=== PATIENT | female | born 1970 | race Caucasian/White ===

== ENCOUNTER 2018-08-18 05:43 | Emergency (ER) | payer SELFPAY ==
[2018-08-18 06:46] LABS: Absolute Lymphocytes (CBC) 2.6 K/uL (0.7-4.9); Absolute Monocytes 0.5 K/uL (0.1-1.3); Absolute Neutrophil 7.4 K/uL (1.8-8.0); Basophils % 0.3 % (0-1.3); Eosinophils % 0.3 % (0-4.4); Hematocrit 48.3 % (36.0-45.0); Lymphocytes % 24.8 % (15.3-44.8); MPV 9.4 fL (7.6-11.3); Monocytes % 4.4 % (3.3-12.3); RBC Red Blood Cell Count 5.57 M/uL (3.86-4.86)
[2018-08-18 07:09] LABS: Protime INR 1.09
[2018-08-18 07:11] LABS: Barbiturates NEGATIVE (NEGATIVE); Benzodiazepines NEGATIVE (NEGATIVE); Cocaine NEGATIVE (NEGATIVE); METHAMPHETAM NEGATIVE (NEGATIVE); Methadone NEGATIVE (NEGATIVE); Opiates NEGATIVE (NEGATIVE); Phencyclidine NEGATIVE (NEGATIVE); THC Cannibis NEGATIVE (NEGATIVE)
[2018-08-18] MEDS ORDERED: LORazepam 2 MG/ML VIAL ONE (07:25)
[2018-08-18] MEDS ORDERED: NA CHLORIDE 0.9% 1,000 ML ONE (07:27)
--- NOTE | 2018-08-18 07:37 | EKG ---
Test Date: 2018-08-18 Test Time: 05:59:40 Kennel Supervisor: AER MEASUREMENT RESULTS: Intervals: Rate: 63 CO: 120 QRSD: 86 QT: 418 QTc: 427 [place]: P: 25 CO: 120 QRS: 14 T: 49 INTERPRETIVE STATEMENTS: Normal sinus rhythm Normal ECG No previous ECG available for comparison Electronically Signed On 08-18-18 07:36:22 ENAMEL APPLIER by Jeramy Valverde
[2018-08-18 07:42] LABS: ALT/SGPT 22 U/L (12-78); AST/SGOT 15 U/L (15-37); Albumin 3.8 g/dL (3.4-5.0); Alkaline Phosphatase 71 U/L (45-117); BUN Blood Urea Nitrogen 4 mg/dL (7-18); Bicarbonate 27 mmol/L (21-32); Bilirubin Direct 0.2 mg/dL (0-0.2); Bilirubin Total 0.7 mg/dL (0.2-1.0); Glucose Level 108 mg/dL (74-106); NT PRO-BNP 347 pg/mL (<125); Protein, Total 7.6 g/dL (6.4-8.2); Sodium Level 140 mmol/L (136-145); Troponin (Emerg Dept Use Only) < 0.02 ng/mL (0.0-0.045)
[2018-08-18 07:44] LABS: Potassium 2.8 mmol/L (3.5-5.1)
[2018-08-18 07:50] LABS: Urine Blood NEGATIVE (NEG); Urine Glucose NEGATIVE (NEG); Urine Protein NEGATIVE (NEG); Urine Specific Gravity 1.015 (1.005-1.030)
[2018-08-18] MEDS ORDERED: NS KCL 20MEQ 1,000 ML IV ONE (08:00)
[2018-08-18] MEDS ORDERED: POTASSIUM CL SA 10 MEQ TAB PO ONE (08:56)
--- NOTE | 2018-08-18 09:46 | ER ---
Nurse's Notes [facility] Name: Petra Parker Age: 47 yrs Sex: Female : 1970 Arrival Date: 08/18/2018 Time: 05:43 Bed 5 Private MD: Diagnosis: Chest pain, unspecified;Anxiety disorder, unspecified;Hypokalemia Presentation: 08/18 06:01 Presenting complaint: Patient states: she has not had a drink since Saturday and ak1 usually drinks a pint of vodka daily. 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 Transition of care: patient was not received from another setting of care. Onset of symptoms. Risk Assessment: Do you want to hurt yourself or someone else? Patient reports no desire to harm self or others. Initial Sepsis Screen: Does the patient meet any 2 criteria? No. Patient's initial sepsis screen is negative. Does the patient have a suspected source of infection? No. Patient's initial sepsis screen is negative. Care prior to arrival: pt took lisinopril, BuSpar, baclofen, melatonin, OTC stress away at 0300 to try resolve chest pain. 06:01 Acuity: ARLYN 3 ak1 06:01 Method Of Arrival: Ambulatory ak1 Triage Assessment: 05:55 General: Appears in no apparent distress. Behavior is calm, cooperative, anxious. Pain: ak1 Complains of pain in chest Pain does not radiate. EENT: No signs and/or symptoms were reported regarding the EENT system. Neuro: Level of Consciousness is awake, alert, obeys commands, Oriented to person, place, time, situation, New Business Clerk are equal bilaterally Moves all extremities. Gait is steady, Speech is normal, Facial symmetry appears normal. Cardiovascular: Reports chest pain. Respiratory: No deficits noted. GI: No signs and/or symptoms were reported involving the gastrointestinal system. : No signs and/or symptoms were reported regarding the genitourinary system. Derm: No signs and/or symptoms reported regarding the dermatologic system. Musculoskeletal: No signs and/or symptoms reported regarding the musculoskeletal system. AIRBORNE OPERATIONS: 05:54 LMP 08/02/2018 ak1 Historical: - Allergies: 06:00 No Known Allergies; ak1 - Home Meds: 06:00 gabapentin 600 mg oral tab 1 tab 3 times per day [Active]; Cymbalta 60 mg oral cpDR 2 ak1 caps once daily [Active]; amitriptyline 50 mg Oral tab 1 tab once daily [Active]; Seroquel 50 mg Oral tab 4 times daily [Active]; - PMHx: 06:00 Depression; Anxiety; Fibromyalgia; insomnia; ak1 - PSHx: 06:00 tubal ; ak1 - Immunization history:: Adult Immunizations unknown. - Social history:: Smoking status: Patient uses tobacco products, smokes one pack cigarettes per day. - Ebola Screening: : No symptoms or risks identified at this time. Screenin:05 Abuse screen: Denies threats or abuse. Denies injuries from another. Nutritional ak1 screening: No deficits noted. Tuberculosis screening: No symptoms or risk factors identified. Fall Risk None identified. Assessment: 06:05 Pain: Pain began 3 hours ago. ak1 06:05 Reassessment: Patient appears in no apparent distress at this time. No changes from ak1 previously documented assessment. see triage assessment. 07:22 Reassessment: Patient appears in no apparent distress at this time. Patient and/or family updated on plan of care and expected duration. Pain level reassessed. Patient is alert, oriented x 3, equal unlabored respirations, skin warm/dry/pink. Patient denies pain at this time. 08:00 Reassessment: Patient appears in no apparent distress at this time. No changes from hb previously documented assessment. Patient and/or family updated on plan of care and expected duration. Pain level reassessed. Patient is alert, oriented x 3, equal unlabored respirations, skin warm/dry/pink. 09:00 Reassessment: Patient appears in no apparent distress at this time. No changes from hb previously documented assessment. Patient and/or family updated on plan of care and expected duration. Pain level reassessed. Patient is alert, oriented x 3, equal unlabored respirations, skin warm/dry/pink. 09:54 Reassessment: Patient appears in no apparent distress at this time. No changes from hb previously documented assessment. Patient and/or family updated on plan of care and expected duration. Pain level reassessed. Patient is alert, oriented x 3, equal unlabored respirations, skin warm/dry/pink. 09:55 Reassessment: Discharge ordered, IV fluids infusing at this time. NAD. VSS. hb Vital Signs: 05:54 BP 150 / 82; Pulse 73; Resp 22; Temp 97.6(TE); Pulse Ox 99% on R/A; Weight 68.04 kg ak1 (R); Height 5 ft. 8 in. (172.72 cm) (R); Pain 8/10; 07:00 BP 132 / 80; Pulse 64; Resp 18; Pulse Ox 99% on R/A; sg 08:00 BP 136 / 82; Pulse 71; Resp 16; Pulse Ox 100% on R/A; Pain 0/10; hb 09:35 BP 128 / 78; Pulse 62; Resp 15; Pulse Ox 100% on R/A; hb 05:54 Body Mass Index 22.81 (68.04 kg, 172.72 cm) ak1 ED Course: 05:43 Patient arrived in ED. al2 05:54 Jesica Brandt, RN is Primary Nurse. ak1 05:54 Arm band placed on Patient placed in an exam room, on a stretcher, on pulse oximetry, ak1 Patient notified of wait time. 06:01 Alisha Zelaya FNP-C is PHCP. kb 06:01 Jaron Langley MD is Attending Physician. kb 06:03 Triage completed. ak1 06:05 Patient has correct armband on for positive identification. Placed in gown. Bed in low ak1 position. Call light in reach. Side rails up X 1. home health speech therapist on. Pulse ox on. NIBP on. 06:05 Patient maintains SpO2 saturation greater than 95% on room air. ak1 06:46 X-ray completed. Portable x-ray completed in exam room. Patient tolerated procedure jb2 well. 06:49 XRAY Chest (1 view) Sent. ak1 06:49 Missed attempt(s): 22 gauge in right antecubital area. Bleeding controlled, band aid ak1 applied, catheter tip intact. 06:50 XRAY Chest (1 view) In Process Unspecified. EDMS 07:00 Lab(s) recollected, by me, sent to lab. Inserted saline lock: 22 gauge in right bb antecubital area, using aseptic technique. Blood collected. 10:11 No provider procedures requiring assistance completed. IV discontinued, intact, hb bleeding controlled, No redness/swelling at site. Pressure dressing applied. Administered Medications: 07:23 Drug: Ativan 1 mg Route: IVP; Site: right antecubital; hb 07:23 Drug: NS 0.9% 1000 ml Route: IV; Rate: 1000 ml; Site: right antecubital; hb 07:56 Drug: NS 0.9% with KCl 20 mEq/L 1000 ml Route: IV; Rate: calculated rate; Site: left hb antecubital; 08:13 Drug: Potassium Chloride 40 mEq Route: PO; hb Outcome: 09:46 Discharge ordered by . kb 10:11 Discharged to home ambulatory. hb 10:11 Condition: stable 10:11 Discharge instructions given to patient, Instructed on discharge instructions, follow up and referral plans. medication usage, Demonstrated understanding of instructions, follow-up care, medications. 10:13 Patient left the ED. Signatures: Dispatcher [employer] EDMS Alisha Zelaya, HOME HEALTH CARE PROVIDER-C HOME HEALTH CARE PROVIDER-Crow Solo RN RN sg Buechter, Jesse jb2 Arminda Phelps RN RN bb Krenek, Amber, RN RN ak1 Baxter, Heather, RN RN hb Love, Angelica al2
--- NOTE | 2018-08-18 09:47 | EDPHYS ---
Physician Documentation [facility] Name: Petra Parker Age: 47 yrs Sex: Female : 1970 Arrival Date: 08/18/2018 Time: 05:43 Bed 5 Private MD: ED Physician Jaron Langley HPI: 08/18 07:05 This 47 yrs old Female presents to ER via Ambulatory with complaints of Chest kb Pain, WITHDRAWS. 07:05 The patient or guardian reports chest pain that is located primarily in the chest kb diffusely. Onset: 2 day(s) ago. The pain does not radiate. Associated signs and symptoms: Pertinent positives: anxiety. The chest pain is described as aching. Duration: The patient or guardian reports a single episode, that is still ongoing. Modifying factors: The symptoms are alleviated by nothing. the symptoms are aggravated by emotionally stressful situations. Severity of pain: At its worst the pain was moderate in the emergency department the pain is unchanged. The patient has not experienced similar symptoms in the past. The patient has not recently seen a physician. Pt states she moved here from [place] to be with her son because he was here alone. States she left without packing her medications. Now she is having a lot of anxiety and chest pain and believes she is withdrawing since she hasn't had her medications. States it has been 3 weeks since she has had any of her meds. Took Buspar and lisinopril to try to make her feel better, but it didn't work. Pt is tearful while recalling HPI. States "I don't want my son to see my like this." Also reports she uses alcohol every other day and hasn't had any for 2 days. 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 - Social history:: Smoking status: Patient uses tobacco products, smokes one pack cigarettes per day. - Ebola Screening: : No symptoms or risks identified at this time. ROS: 07:02 Constitutional: Negative for fever, chills, and weight loss, Eyes: Negative for injury, kb pain, redness, and discharge, ENT: Negative for injury, pain, and discharge, Neck: Negative for injury, pain, and swelling, Respiratory: Negative for shortness of breath, cough, wheezing, and pleuritic chest pain, Abdomen/GI: Negative for abdominal pain, nausea, vomiting, diarrhea, and constipation, Back: Negative for injury and pain, : Negative for injury, bleeding, discharge, and swelling, MS/Extremity: Negative for injury and deformity, Skin: Negative for injury, rash, and discoloration, Neuro: Negative for headache, weakness, numbness, tingling, and seizure. 07:02 Cardiovascular: Positive for chest pain, Negative for edema, orthopnea, palpitations, paroxysmal nocturnal dyspnea. 07:02 Psych: Positive for anxiety. Exam: 07:02 Constitutional: This is a well developed, well nourished patient who is awake, alert, kb and in no acute distress. Head/Face: Normocephalic, atraumatic. Eyes: Pupils equal round and reactive to light, extra-ocular motions intact. Lids and lashes normal. Conjunctiva and sclera are non-icteric and not injected. Cornea within normal limits. Periorbital areas with no swelling, redness, or edema. ENT: Nares patent. No nasal discharge, no septal abnormalities noted. Tympanic membranes are normal and external auditory canals are clear. Oropharynx with no redness, swelling, or masses, exudates, or evidence of obstruction, uvula midline. Mucous membranes moist. Neck: Trachea midline, no thyromegaly or masses palpated, and no cervical lymphadenopathy. Supple, full range of motion without nuchal rigidity, or vertebral point tenderness. No Meningismus. Chest/axilla: Normal chest wall appearance and motion. Nontender with no deformity. No lesions are appreciated. Cardiovascular: Regular rate and rhythm with a normal S1 and S2. No gallops, murmurs, or rubs. Normal PMI, no JVD. No pulse deficits. Respiratory: Lungs have equal breath sounds bilaterally, clear to auscultation and percussion. No rales, rhonchi or wheezes noted. No increased work of breathing, no retractions or nasal flaring. Abdomen/GI: Soft, non-tender, with normal bowel sounds. No distension or tympany. No guarding or rebound. No evidence of tenderness throughout. Skin: Warm, dry with normal turgor. Normal color with no rashes, no lesions, and no evidence of cellulitis. MS/ Extremity: Pulses equal, no cyanosis. Neurovascular intact. Full, normal range of motion. Neuro: Awake and alert, GCS 15, oriented to person, place, time, and situation. Cranial nerves II-XII grossly intact. Motor strength 5/5 in all extremities. Sensory grossly intact. Cerebellar exam normal. Normal gait. 07:02 Psych: Behavior/mood is cooperative, anxious, tearful. Affect is calm, Oriented to person, place, time, Patient has no thoughts/intents to harm self or others. Judgement / Insight is normal. Memory is normal. Delusions/hallucinations are not present. Vital Signs: 05:54 BP 150 / 82; Pulse 73; Resp 22; Temp 97.6(TE); Pulse Ox 99% on R/A; Weight 68.04 kg ak1 (R); Height 5 ft. 8 in. (172.72 cm) (R); Pain 8/10; 07:00 BP 132 / 80; Pulse 64; Resp 18; Pulse Ox 99% on R/A; sg 08:00 BP 136 / 82; Pulse 71; Resp 16; Pulse Ox 100% on R/A; Pain 0/10; hb 09:35 BP 128 / 78; Pulse 62; Resp 15; Pulse Ox 100% on R/A; hb 05:54 Body Mass Index 22.81 (68.04 kg, 172.72 cm) ak1 MDM: 06:01 Patient medically screened. kb 07:02 Data reviewed: vital signs, nurses notes. Data interpreted: Pulse oximetry: on room air kb is 99 %. Interpretation: normal. 09:36 Counseling: I had a detailed discussion with the patient and/or guardian regarding: the kb historical points, exam findings, and any diagnostic results supporting the discharge/admit diagnosis, lab results, radiology results, the need for outpatient follow up, a family practitioner, to return to the emergency department if symptoms worsen or persist or if there are any questions or concerns that arise at home. 08/18 06:16 Order name: Basic Metabolic Panel; Complete Time: 07:45 kb 08/18 06:16 Order name: CBC with Diff; Complete Time: 06:49 kb 08/18 06:16 Order name: LFT's; Complete Time: 07:45 kb 08/18 06:16 Order name: Magnesium; Complete Time: 07:45 kb 08/18 06:16 Order name: NT PRO-BNP; Complete Time: 07:45 kb 08/18 06:16 Order name: PT-INR; Complete Time: 07:25 kb 08/18 06:16 Order name: Troponin (emerg Dept Use Only); Complete Time: 07:45 kb 08/18 06:16 Order name: XRAY Chest (1 view) kb 08/18 06:16 Order name: UDS; Complete Time: 07:12 kb 08/18 06:16 Order name: ETOH Level; Complete Time: 07:34 kb 08/18 06:49 Order name: Urine Dipstick--Ancillary (enter results); Complete Time: 07:52 ag4 08/18 06:49 Order name: Urine --Ancillary (enter results); Complete Time: 07:52 ag4 08/18 08:39 Order name: Troponin (emerg Dept Use Only); Complete Time: 09:18 iw 08/18 06:16 Order name: EKG; Complete Time: 06:17 kb 08/18 06:16 Order name: Cardiac monitoring; Complete Time: 06:19 kb 08/18 06:16 Order name: EKG - Nurse/Tech; Complete Time: 06:19 kb 08/18 06:16 Order name: IV Saline Lock; Complete Time: 07:04 kb 08/18 06:16 Order name: Labs collected and sent; Complete Time: 06:48 kb 08/18 06:16 Order name: O2 Per Protocol; Complete Time: 06:19 kb 08/18 06:16 Order name: O2 Sat Monitoring; Complete Time: 06:19 kb 08/18 08:41 Order name: EKG; Complete Time: 08:41 kb 08/18 08:41 Order name: EKG - Nurse/Tech; Complete Time: 08:54 kb Administered Medications: 07:23 Drug: Ativan 1 mg Route: IVP; Site: right antecubital; hb 07:23 Drug: NS 0.9% 1000 ml Route: IV; Rate: 1000 ml; Site: right antecubital; hb 07:56 Drug: NS 0.9% with KCl 20 mEq/L 1000 ml Route: IV; Rate: calculated rate; Site: left hb antecubital; 08:13 Drug: Potassium Chloride 40 mEq Route: PO; hb Disposition: 21:00 Co-signature as Attending Physician, Jaron Langley MD. Disposition: 08/18/18 09:46 Discharged to Home. Impression: Chest pain, unspecified, Anxiety disorder, unspecified, Hypokalemia. - Condition is Stable. - Discharge Instructions: Nonspecific Chest Pain, [id number], Panic Attacks, [id number]. - Medication Reconciliation Form, Thank You Letter, Antibiotic Education, Prescription Opioid Use form. - Follow up: Emergency Department; When: As needed; Reason: Worsening of condition. Follow up: Private Physician; When: 2 - 3 days; Reason: Recheck today's complaints, Continuance of care, Re-evaluation by your physician. Signatures: Dispatcher [employer] EDMS Alisha Zelaya, SARAH-C BUSINESS RECORDS MANAGER-Jesica Deluca RN RN ak1 Heaven Garcia RN RN Jaron Langley MD MD Corrections: (The following items were deleted from the chart) 09:47 09:46 08/18/2018 09:46 Discharged to Home. Impression: Chest pain, unspecified; Anxiety kb disorder, unspecified. Condition is Stable. Forms are Medication Reconciliation Form, Thank You Letter, Antibiotic Education, Prescription Opioid Use. Follow up: Emergency Department; When: As needed; Reason: Worsening of condition. Follow up: Private Physician; When: 2 - 3 days; Reason: Recheck today's complaints, Continuance of care, Re-evaluation by your physician. kb 10:13 09:47 08/18/2018 09:46 Discharged to Home. Impression: Chest pain, unspecified; Anxiety hb disorder, unspecified; Hypokalemia. Condition is Stable. Forms are Medication Reconciliation Form, Thank You Letter, Antibiotic Education, Prescription Opioid Use. Follow up: Emergency Department; When: As needed; Reason: Worsening of condition. Follow up: Private Physician; When: 2 - 3 days; Reason: Recheck today's complaints, Continuance of care, Re-evaluation by your physician. kb
--- NOTE | 2018-08-18 10:40 | RAD REPORT ---
EXAM DESCRIPTION: RAD - Chest Single View - 08/18/2018 6:54 am CLINICAL HISTORY: CHEST PAIN Chest pain. COMPARISON: No comparisons FINDINGS: Portable technique limits examination quality. The lungs are grossly clear. The heart is normal in size. No displaced fractures. IMPRESSION: No acute intrathoracic process suspected.
--- NOTE | 2018-08-18 11:58 | EKG ---
Test Date: 2018-08-18 Test Time: 08:48:54 Liner Inserter: NATALIIA MEASUREMENT RESULTS: Intervals: Rate: 64 DC: 144 QRSD: 84 QT: 434 QTc: 447 [place]: P: 73 DC: 144 QRS: 65 T: 67 INTERPRETIVE STATEMENTS: Normal sinus rhythm Normal ECG Compared to ECG 08/18/2018 05:59:40 No significant changes Electronically Signed On 08-18-18 11:57:43 MOTOR VEHICLE LECTURER by Jeramy Valverde
[2018-08-19] MEDS ORDERED: NA CHLORIDE 0.9% 1,000 ML ONE (11:03)
[2018-08-19] MEDS ORDERED: ASPIRIN 81 MG CHEWABLE TABLET ONE (11:03)
== END 2018-08-18 10:13 | disposition home or self-care (01) ==
LOC: ER 05:43
DX: F41.9 Anxiety disorder, unspecified (principal); E87.6 Hypokalemia; F17.210 Nicotine dependence, cigarettes, uncomplicated; F32.9 Major depressive disorder, single episode, unspecified
CPT/HCPCS: 36415; 71045; 80048; 80076; 80307; 80320; 81003; 81025; 83735; 83880; 84484; 85025; 85610; 93005; 96374; 99285; J7030

== ENCOUNTER 2018-08-19 10:47 | Inpatient (IN) | payer SELFPAY ==
--- NOTE | 2018-08-19 11:44 | EDPHYS ---
Physician Documentation [facility] Name: Petra Parker Age: 47 yrs Sex: Female : 1970 Arrival Date: 08/19/2018 Time: 10:49 Bed 6 Private MD: ED Physician Forrest Blanchard HPI: 08/19 11:39 This 47 yrs old Female presents to ER via Ambulatory with complaints of Chest liborio Pain, Suicidal Ideation. 11:39 The patient or guardian reports chest pain that is located primarily in the substernal liborio area, anterior chest wall, left. Onset: 2 day(s) ago. The pain radiates to left neck. Associated signs and symptoms: Pertinent positives: shortness of breath. The chest pain is described as a heaviness, a pressure. Duration: The patient or guardian reports multiple episodes, that wax and wane. Modifying factors: The symptoms are alleviated by nothing. the symptoms are aggravated by nothing. Severity of pain: At its worst the pain was moderate in the emergency department the pain has improved mildly. The patient has experienced similar episodes in the past, several times. Historical: - Allergies: 11:07 No Known Allergies; ph - Home Meds: 11:07 gabapentin 600 mg Oral tab 1 tab 3 times per day [Active]; Cymbalta 60 mg Oral cpDR 1 ph cap twice a day [Active]; Lamictal 25 mg Oral TChD 1 tabs twice a day [Active]; Keppra 500 mg Oral tab 1 tab 2 times per day [Active]; methadone 10 mg Oral tab take 6 tablets daily for chronic pain [Active]; pantoprazole 40 mg oral TbEC 1 tab once daily [Active]; ProAir HFA 90 mcg/actuation inhalation HFAA 2 puffs every 6 hours [Active]; - PMHx: 11:07 Anxiety; Depression; Fibromyalgia; insomnia; Seizures; ph - PSHx: 11:07 tubal ; ph - Immunization history:: Adult Immunizations unknown. - Social history:: Smoking status: Patient uses tobacco products, smokes one pack cigarettes per day. Patient uses alcohol, on a daily basis. Patient/guardian denies using street drugs. - Ebola Screening: : No symptoms or risks identified at this time Patient negative for fever greater than or equal to 101.5 degrees Fahrenheit, and additional compatible Ebola Virus Disease symptoms Patient denies exposure to infectious person Patient denies travel to an Ebola-affected area in the 21 days before illness onset No symptoms or risks identified at this time. - Family history:: not pertinent. ROS: 11:39 Constitutional: Negative for fever, chills, and weight loss, Eyes: Negative for injury, liborio pain, redness, and discharge, ENT: Negative for injury, pain, and discharge, Neck: Negative for injury, pain, and swelling, Respiratory: Negative for shortness of breath, cough, wheezing, and pleuritic chest pain, Abdomen/GI: Negative for abdominal pain, nausea, vomiting, diarrhea, and constipation, Back: Negative for injury and pain, : Negative for injury, bleeding, discharge, and swelling, MS/Extremity: Negative for injury and deformity, Skin: Negative for injury, rash, and discoloration, Neuro: Negative for headache, weakness, numbness, tingling, and seizure, Psych: Negative for depression, anxiety, suicide ideation, homicidal ideation, and hallucinations, Allergy/Immunology: Negative for hives, rash, and allergies, Endocrine: Negative for neck swelling, polydipsia, polyuria, polyphagia, and marked weight changes, Hematologic/Lymphatic: Negative for swollen nodes, abnormal bleeding, and unusual bruising. 11:39 Cardiovascular: Positive for chest pain. Exam: 11:39 Constitutional: This is a well developed, well nourished patient who is awake, alert, liborio and in no acute distress. Head/Face: Normocephalic, atraumatic. Eyes: Pupils equal round and reactive to light, extra-ocular motions intact. Lids and lashes normal. Conjunctiva and sclera are non-icteric and not injected. Cornea within normal limits. Periorbital areas with no swelling, redness, or edema. ENT: Nares patent. No nasal discharge, no septal abnormalities noted. Tympanic membranes are normal and external auditory canals are clear. Oropharynx with no redness, swelling, or masses, exudates, or evidence of obstruction, uvula midline. Mucous membranes moist. Neck: Trachea midline, no thyromegaly or masses palpated, and no cervical lymphadenopathy. Supple, full range of motion without nuchal rigidity, or vertebral point tenderness. No Meningismus. Chest/axilla: Normal chest wall appearance and motion. Nontender with no deformity. No lesions are appreciated. Cardiovascular: Regular rate and rhythm with a normal S1 and S2. No gallops, murmurs, or rubs. Normal PMI, no JVD. No pulse deficits. Respiratory: Lungs have equal breath sounds bilaterally, clear to auscultation and percussion. No rales, rhonchi or wheezes noted. No increased work of breathing, no retractions or nasal flaring. Abdomen/GI: Soft, non-tender, with normal bowel sounds. No distension or tympany. No guarding or rebound. No evidence of tenderness throughout. Back: No spinal tenderness. No costovertebral tenderness. Full range of motion. Skin: Warm, dry with normal turgor. Normal color with no rashes, no lesions, and no evidence of cellulitis. MS/ Extremity: Pulses equal, no cyanosis. Neurovascular intact. Full, normal range of motion. Neuro: Awake and alert, GCS 15, oriented to person, place, time, and situation. Cranial nerves II-XII grossly intact. Motor strength 5/5 in all extremities. Sensory grossly intact. Cerebellar exam normal. Normal gait. Psych: Awake, alert, with orientation to person, place and time. Behavior, mood, and affect are within normal limits. 11:39 Musculoskeletal/extremity: DVT Exam: No signs of deep vein thrombosis. no pain, no swelling, no tenderness, negative Homans' sign noted on exam, no appreciated bluish discoloration, no erythema, no increased warmth. 11:42 Psych: Behavior/mood is pleasant, cooperative, Affect is calm, Oriented to person, liborio place, time, Patient has no thoughts/intents to harm self or others. Judgement / Insight is normal. Memory is normal. Delusions/hallucinations are not present. Vital Signs: 11:01 BP 173 / 101; Pulse 70; Resp 16; Temp 98.4; Pulse Ox 97% on R/A; Weight 68.04 kg; iw Height 5 ft. 8 in. (172.72 cm); Pain 8/10; 11:49 BP 159 / 89; Pulse 70; Resp 16; Pulse Ox 98% on R/A; iw 12:21 BP 166 / 96; Pulse 63; Resp 20; Temp 98.0(O); Pulse Ox 98% on R/A; mh5 12:57 BP 175 / 93; Pulse 58; Resp 27; Pulse Ox 97% on R/A; dh3 13:14 BP 155 / 81; Pulse 56; Resp 16; Pulse Ox 98% on R/A; iw 13:45 BP 158 / 94; Pulse 61; Resp 20; Pulse Ox 96% on R/A; dh3 11:01 Body Mass Index 22.81 (68.04 kg, 172.72 cm) MDM: 10:50 Patient medically screened. [facility] 11:39 Data reviewed: vital signs, nurses notes, lab test result(s), EKG, radiologic studies, [facility] CT scan, plain films. 08/19 10:51 Order name: Basic Metabolic Panel; Complete Time: 12:[address] [facility] 08/19 10:51 Order name: CBC with Diff; Complete Time: 12:[address] [facility] 08/19 10:51 Order name: LFT's; Complete Time: 12:[address] [facility] 08/19 10:51 Order name: Magnesium; Complete Time: 12:[address] [facility] 08/19 10:51 Order name: NT PRO-BNP; Complete Time: 12:[address] [facility] 08/19 10:51 Order name: PT-INR [facility] 08/19 10:51 Order name: Troponin (emerg Dept Use Only); Complete Time: 12:[address] [facility] 08/19 10:51 Order name: Lipase; Complete Time: 12:[address] [facility] 08/19 11:06 Order name: Acetaminophen 08/19 11:06 Order name: ETOH Level 08/19 11:06 Order name: Ptt, Activated 08/19 11:06 Order name: Salicylate 08/19 11:06 Order name: Urine Drug Screen; Complete Time: 12:46 08/19 11:06 Order name: Acetaminophen Level; Complete Time: 12:46 EDNE 08/19 11:06 Order name: Alcohol Serum/Plasma; Complete Time: 12:46 EDMS 08/19 11:06 Order name: Salicylates Level; Complete Time: 12:46 EDMS 08/19 11:41 Order name: Urine Dipstick--Ancillary (enter results) 08/19 11:41 Order name: Urine --Ancillary (enter results) 08/19 11:41 Order name: Urine Dipstick-Ancillary; Complete Time: 12:46 EDMS 08/19 11:41 Order name: Urine --Ancillary; Complete Time: 12:46 EDMS 08/19 11:55 Order name: PTT, Activated Partial Thromb EDMS 08/19 10:51 Order name: EKG; Complete Time: 10:[address] [facility] 08/19 10:51 Order name: Cardiac monitoring; Complete Time: 11: [facility] 08/19 10:51 Order name: EKG - Nurse/Tech; Complete Time: 11:[address] [facility] 08/19 10:51 Order name: IV Saline Lock; Complete Time: 11: [facility] 08/19 10:51 Order name: Labs collected and sent; Complete Time: : [facility] 08/19 10:51 Order name: O2 Per Protocol; Complete Time: 11: [facility] 08/19 10:51 Order name: O2 Sat Monitoring; Complete Time: 11: [facility] 08/19 10:51 Order name: Urine Dipstick-Ancillary (obtain specimen); Complete Time: 11:[address] [facility] 08/19 11:06 Order name: Urine Test (obtain specimen); Complete Time: 11:38 08/19 11:25 Order name: Misc. Order: RECOLLECT LABS please; Complete Time: 11:46 ss Administered Medications: 11:47 Drug: NS 0.9% 1000 ml Route: IV; Rate: 125 ml/hr; Site: left jugular; iw 11:47 Drug: Aspirin 162 mg Route: PO; iw 12:00 Drug: Thiamine 100 mg Route: IV; Rate: bolus; Site: left jugular; iw 12:00 Drug: Lopressor (metoprolol TARTRATE) 50 mg Route: PO; iw 12:03 Drug: Ativan 1 mg Route: IVP; Site: left jugular; iw 13:48 Drug: Potassium Effervescent Tablet 50 mEq Route: PO; iw 13:49 Drug: Zofran 4 mg Route: IVP; Site: left jugular; iw Disposition: 08/19/18 11:43 Hospitalization ordered by Yuniel Merritt for Observation. Preliminary diagnosis are Chest pain, unspecified, Suicidal ideations, Essential (primary) hypertension, Hypokalemia. - Bed requested for Intensive Care Unit. - Status is Observation. iw - Condition is Stable. - Problem is new. - Symptoms have improved. UTI on Admission? No Signatures: Dispatcher [employer] [facility] Forrest Blanchard MD MD cha Williams, Irene, RN RN Dana Su RN RN Ramya Omalley RN RN Maxine Lenz Corrections: (The following items were deleted from the chart) 11:04 10:52 Chest Single View+[id number].[id number] ordered. EDNE EDMS 11:55 11:06 PTT, Activated Partial Thromb ordered. EDNE EDMS 12:47 11:43 Hospitalization Ordered by Yuniel Merritt MD for Observation. Preliminary diagnosis liborio is Chest pain, unspecified; Suicidal ideations; Essential (primary) hypertension. Bed requested for Telemetry/MedSurg (observation). Status is Observation. Condition is Stable. Problem is new. Symptoms have improved. UTI on Admission? No. liborio 13:20 12:47 08/19/2018 11:43 Hospitalization Ordered by Yuniel Merritt MD for Observation. eb Preliminary diagnosis is Chest pain, unspecified; Suicidal ideations; Essential (primary) hypertension; Hypokalemia. Bed requested for Telemetry/MedSurg (observation). Status is Observation. Condition is Stable. Problem is new. Symptoms have improved. UTI on Admission? No. liborio 14:40 13:20 08/19/2018 11:43 Hospitalization Ordered by Yuniel Merritt MD for Observation. iw Preliminary diagnosis is Chest pain, unspecified; Suicidal ideations; Essential (primary) hypertension; Hypokalemia. Bed requested for Intensive Care Unit. Status is Observation. Condition is Stable. Problem is new. Symptoms have improved. UTI on Admission? No. eb
--- NOTE | 2018-08-19 11:44 | ER ---
Nurse's Notes [facility] Name: Petra Parker Age: 47 yrs Sex: Female : 1970 Arrival Date: 08/19/2018 Time: 10:49 Bed 6 Private MD: Diagnosis: Chest pain, unspecified;Suicidal ideations;Essential (primary) hypertension;Hypokalemia Presentation: 08/19 10:57 Presenting complaint: Patient states: L sided chest pain x 2-3 weeks that radiates to L ph jaw, also reports dizziness and palpitations, states, " I have been out of my medicines for about 3 weeks and I have been thinking about killing myself." Pt does report organized plan and states that she would hang herself. Pt also states that she is a daily drinker, reports drinking a 5th of vodka daily since out of medications, last drink this morning. Transition of care: patient was not received from another setting of care. Onset of symptoms was August 19, 2018. Risk Assessment: Do you want to hurt yourself or someone else? Patient reports desire/thoughts of hurting themselves or someone else. Provider notified. Initial Sepsis Screen: Does the patient meet any 2 criteria? No. Patient's initial sepsis screen is negative. Does the patient have a suspected source of infection? No. Patient's initial sepsis screen is negative. Care prior to arrival: None. 10:57 Method Of Arrival: Ambulatory ph 10:57 Acuity: ARLYN 2 ph Historical: - Allergies: 11:07 No Known Allergies; ph - Home Meds: 11:07 gabapentin 600 mg Oral tab 1 tab 3 times per day [Active]; Cymbalta 60 mg Oral cpDR 1 ph cap twice a day [Active]; Lamictal 25 mg Oral TChD 1 tabs twice a day [Active]; Keppra 500 mg Oral tab 1 tab 2 times per day [Active]; methadone 10 mg Oral tab take 6 tablets daily for chronic pain [Active]; pantoprazole 40 mg oral TbEC 1 tab once daily [Active]; ProAir HFA 90 mcg/actuation inhalation HFAA 2 puffs every 6 hours [Active]; - PMHx: 11:07 Anxiety; Depression; Fibromyalgia; insomnia; Seizures; ph - PSHx: 11:07 tubal ; ph - Immunization history:: Adult Immunizations unknown. - Social history:: Smoking status: Patient uses tobacco products, smokes one pack cigarettes per day. Patient uses alcohol, on a daily basis. Patient/guardian denies using street drugs. - Ebola Screening: : No symptoms or risks identified at this time Patient negative for fever greater than or equal to 101.5 degrees Fahrenheit, and additional compatible Ebola Virus Disease symptoms Patient denies exposure to infectious person Patient denies travel to an Ebola-affected area in the 21 days before illness onset No symptoms or risks identified at this time. - Family history:: not pertinent. Screenin:52 Abuse screen: Denies threats or abuse. Nutritional screening: No deficits noted. iw Tuberculosis screening: No symptoms or risk factors identified. Fall Risk IV access (20 points). Assessment: 11:51 Reassessment: Patient appears in no apparent distress at this time. Patient and/or iw family updated on plan of care and expected duration. Pain level reassessed. Patient is alert, oriented x 3, equal unlabored respirations, skin warm/dry/pink. pt requesting medication for anxiety, hasn't slept in two days. Psych: 11:15 Subjective: Patient's mood is sad, Delusions are denied, Hallucinations are denied iw Having thoughts of suicide. Plan for suicide is to hang herself. Objective: Patient is cooperative, Speech is normal, Affect is flat. Interventions: Removed personal items and placed in bag. Patient placed in hospital gown. Searched person for dangerous items. Urine collected and sent for urine drug test. Suicide Risk Assessment: Sad Person Scale: Sex of patient: Female: Score 0 points. Age of patient: Score 0 point if patient falls outside of specified age parameters. Depression: Score 1 point if signs of depression are present. Previous Attempt: Substance Abuse: Score 1 point if patient abuses alcohol or drugs. Rational Thinking: Score 1 point if patient is lacking rational thinking. Social Support: Score 1 point if social support is lacking and/or unavailable. Organized Plan: Score 1 point if patient had a plan in place. Relationship: Score 1 point if patient is , , , or for a single male Chronic Sickness: Score 0 point if patient does not have a chronic illness, debilitating, or severe disorder. Safety Checks: Personal items have been removed. Door is open. Patient uses one fifth of liquor, daily. Last use was this morning . Commitment: Patient will be a voluntary commitment. Vital Signs: 11:01 BP 173 / 101; Pulse 70; Resp 16; Temp 98.4; Pulse Ox 97% on R/A; Weight 68.04 kg; iw Height 5 ft. 8 in. (172.72 cm); Pain 8/10; 11:49 BP 159 / 89; Pulse 70; Resp 16; Pulse Ox 98% on R/A; iw 12:21 BP 166 / 96; Pulse 63; Resp 20; Temp 98.0(O); Pulse Ox 98% on R/A; mh5 12:57 BP 175 / 93; Pulse 58; Resp 27; Pulse Ox 97% on R/A; dh3 13:14 BP 155 / 81; Pulse 56; Resp 16; Pulse Ox 98% on R/A; iw 13:45 BP 158 / 94; Pulse 61; Resp 20; Pulse Ox 96% on R/A; dh3 11:01 Body Mass Index 22.81 (68.04 kg, 172.72 cm) iw ED Course: 10:49 Patient arrived in ED. rg4 10:50 Forrest Blanchard MD is Attending Physician. liborio 10:51 Sallie Pascal, RN is Primary Nurse. iw 11:01 Triage completed. ph 11:05 Initial lab(s) drawn, by me, sent to lab. Missed attempt(s): 22 gauge in left sv antecubital area. Bleeding controlled, band aid applied, catheter tip intact. 11:07 EKG done, by medical technologist prn. reviewed by Forrest Blanchard MD. 3 11:07 Arm band placed on Patient placed in an exam room, on a stretcher, in view of staff ph members. 11:07 Safety checks: Items removed: yes. Door open/sign placed on door: yes. Family/friend dh3 present: no. Sitter present: Yes. 11:09 Patient has correct armband on for positive identification. Placed in gown. Bed in low sv position. electronic device monitor on. Pulse ox on. NIBP on. Head of bed elevated. 11:15 Safety checks: Items removed: yes. Door open/sign placed on door: yes. Family/friend dh3 present: no. Sitter present: Yes. 11:23 Urine collected: hat, deonte color. dh3 11:30 Missed attempt(s): 22 gauge in right forearm. Bleeding controlled, band aid applied, iw catheter tip intact. 11:30 Safety checks: Items removed: yes. Door open/sign placed on door: yes. Family/friend dh3 present: no. Sitter present: Yes. 11:40 Lab(s) recollected, by me, sent to lab. [facility] 11:40 Inserted saline lock: 18 gauge in left EJ, using aseptic technique. by Dr. Blanchard. [facility] 11:42 Yuniel Merritt MD is Hospitalizing Provider. [facility] 11:45 Safety checks: Items removed: yes. Door open/sign placed on door: yes. Family/friend dh3 present: no. Sitter present: Yes. 12:00 Safety checks: Items removed: yes. Door open/sign placed on door: yes. Family/friend mh5 present: no. Sitter present: Yes. 12:15 Safety checks: Items removed: yes. Door open/sign placed on door: yes. Family/friend mh5 present: no. Other: DR SILVA IN WITH PATIENT . Sitter present: Yes. 12:30 Safety checks: Items removed: yes. Door open/sign placed on door: yes. Family/friend mh5 present: no. Sitter present: Yes. 12:45 Safety checks: Items removed: yes. Door open/sign placed on door: yes. Family/friend dh3 present: no. Sitter present: Yes. 13:00 Safety checks: Items removed: yes. Door open/sign placed on door: yes. Family/friend dh3 present: no. Sitter present: Yes. 13:15 Safety checks: Items removed: yes. Door open/sign placed on door: yes. Family/friend dh3 present: no. Sitter present: Yes. 13:30 Safety checks: Items removed: yes. Door open/sign placed on door: yes. Family/friend dh3 present: no. Sitter present: Yes. 13:45 Safety checks: Items removed: yes. Door open/sign placed on door: yes. Family/friend dh3 present: no. Sitter present: Yes. 14:00 Safety checks: Items removed: yes. Door open/sign placed on door: yes. Family/friend dh3 present: no. Sitter present: Yes. Administered Medications: 11:47 Drug: NS 0.9% 1000 ml Route: IV; Rate: 125 ml/hr; Site: left jugular; iw 11:47 Drug: Aspirin 162 mg Route: PO; iw 12:00 Drug: Thiamine 100 mg Route: IV; Rate: bolus; Site: left jugular; iw 12:00 Drug: Lopressor (metoprolol TARTRATE) 50 mg Route: PO; iw 12:03 Drug: Ativan 1 mg Route: IVP; Site: left jugular; iw 13:48 Drug: Potassium Effervescent Tablet 50 mEq Route: PO; iw 13:49 Drug: Zofran 4 mg Route: IVP; Site: left jugular; iw Outcome: 11:43 Decision to Hospitalize by Provider. [facility] 14:40 Patient left the ED. iw Signatures: Melanie Medina RN RN Forrest Blanchard MD MD cha Williams, Irene, RN RN Ramya Omalley RN RN Remy, Maryann 4 Juanita Waterman 5 Mathew, Maria Isabel 3 Linn Tate 3 Corrections: (The following items were deleted from the chart) 11:14 11:01 Temp 98.4F; 68.04 kg; Height 5 ft. 8 in.; BMI: 22.8; Pain 8/10; ph iw
[2018-08-19 11:47] LABS: Barbiturates NEGATIVE (NEGATIVE); Benzodiazepines NEGATIVE (NEGATIVE); Cocaine NEGATIVE (NEGATIVE); METHAMPHETAM NEGATIVE (NEGATIVE); Methadone NEGATIVE (NEGATIVE); Opiates NEGATIVE (NEGATIVE); Phencyclidine NEGATIVE (NEGATIVE); THC Cannibis NEGATIVE (NEGATIVE)
[2018-08-19 12:02] LABS: Urine Blood NEGATIVE (NEG); Urine Glucose NEGATIVE (NEG); Urine Protein 1+ (NEG); Urine Specific Gravity 1.025 (1.005-1.030)
[2018-08-19] MEDS ORDERED: METOPROLOL TAR 50 MG TAB ONE (12:05)
[2018-08-19] MEDS ORDERED: THIAMINE 200 MG/2 ML INJ ONE (12:05)
[2018-08-19] MEDS ORDERED: LORazepam 2 MG/ML VIAL ONE (12:05)
[2018-08-19 12:11] LABS: Absolute Lymphocytes (CBC) 3.6 K/uL (0.7-4.9); Absolute Monocytes 0.8 K/uL (0.1-1.3); Absolute Neutrophil 6.9 K/uL (1.8-8.0); Basophils % 0.3 % (0-1.3); Eosinophils % 0.1 % (0-4.4); Hematocrit 43.5 % (36.0-45.0); Lymphocytes % 31.5 % (15.3-44.8); MPV 9.6 fL (7.6-11.3); Monocytes % 7.1 % (3.3-12.3); RBC Red Blood Cell Count 4.98 M/uL (3.86-4.86)
[2018-08-19 12:20] LABS: Protime INR 1.09
[2018-08-19 12:25] LABS: ALT/SGPT 22 U/L (12-78); AST/SGOT 19 U/L (15-37); Albumin 3.8 g/dL (3.4-5.0); Alkaline Phosphatase 69 U/L (45-117); BUN Blood Urea Nitrogen 6 mg/dL (7-18); Bicarbonate 25 mmol/L (21-32); Bilirubin Direct 0.2 mg/dL (0-0.2); Bilirubin Total 0.5 mg/dL (0.2-1.0); Glucose Level 98 mg/dL (74-106); Lipase 174 U/L (73-393); NT PRO-BNP 198 pg/mL (<125); Protein, Total 7.6 g/dL (6.4-8.2); Sodium Level 138 mmol/L (136-145); Troponin (Emerg Dept Use Only) < 0.02 ng/mL (0.0-0.045)
--- NOTE | 2018-08-19 12:43 | EKG ---
Test Date: 2018-08-19 Test Time: 11:02:47 Low Pressure Kettle Operator: NATALIIA MEASUREMENT RESULTS: Intervals: Rate: 68 SD: 122 QRSD: 84 QT: 408 QTc: 433 [place]: P: 33 SD: 122 QRS: 67 T: 62 INTERPRETIVE STATEMENTS: Normal sinus rhythm Normal ECG Compared to ECG 08/18/2018 08:48:54 No significant changes Electronically Signed On 08-19-18 12:38:05 FRUIT OR NUT PICKER by Jeramy Valverde
[2018-08-19] MEDS ORDERED: ONDANSETRON 4 MG/2 ML VIAL ONE (13:51)
[2018-08-19] MEDS ORDERED: POTASSIUM 25 MEQ EFFERV TAB ONE (13:51)
[2018-08-19] MEDS ORDERED: ACETAMINOPHEN 500 MG TAB PO PRN (13:54)
[2018-08-19] MEDS ORDERED: LORazepam 2 MG/ML VIAL IV ONE (15:17)
[2018-08-19] MEDS: ONDANSETRON 4 MG/2 ML VIAL IV PRN (15:29)
[2018-08-19] MEDS: NICOTINE 21 MG/PAT TD SCH (15:29)
[2018-08-19] MEDS: NA CHLORIDE 0.9% 1,000 ML IV SCH (15:30)
[2018-08-19] MEDS: ENOXAPARIN 40 MG/0.4 ML SQ SCH (15:31)
--- NOTE | 2018-08-19 18:20 | P.HP ---
Certification for Inpatient Patient admitted to: Inpatient With expected LOS: >2 Midnights Practitioner: I am a practitioner with admitting privileges, knowledge of patient current condition, hospital course, and medical plan of care. Services: Services provided to patient in accordance with Admission requirements found in Title 42 Section 412.3 of the Code of Federal Regulations Patient History Date of Service: 08/19/18 Primary Care Provider: Does not have one, recently moved from [place] Reason for admission: Chest pain History of Present Illness: This is a 47-year-old female with history of heroin addiction/usage, alcohol abuse, depression, questionable seizure admitted for chest pain. The patient was in the ER at the day prior to admission, sent home with ER. Now returns with worsening chest pain. Per patient, just inserted just 3 weeks ago in the sternal/lower left side area of the chest, impinging/shooting type of pain along with some heaviness. States the pain radiates down her left arm, up to her jaw and neck of the left side. It has been progressively worsening for the past 2-3 weeks. She states that is associated with palpitations, vomiting, chills and clamminess. Denies any fevers, abdominal symptoms, diarrhea, constipation or symptoms. Per patient, she does have a history of depression and she has not been taking any of her medications past meds because she could not afford them. She states that she is becoming more more depressed, has suicidal thoughts. Last time she had any suicidal ideations was the morning of admission. She stated that she would hang herself, because she was tired of living the way she has been, trying to cough up alcohol, unable to afford medications etc. Of note, patient also has a history of addiction to heroin. Patient states that she has not used any heroin since 1 month. She was supposed to be going to a methadone clinic, though has not been doing that because she cannot afford it?. She has recently moved from [place] here 1 week ago and therefore has no support system here or any primary care physician. In the ER, patient's blood pressure was 166/96, heart rate of 63, EKG with nonspecific changes, BNP slightly elevated and labs fairly unremarkable. At the time of my exam, she was not in any acute distress, though did seem a little anxious. She was alert oriented x3. Allergies No Known Allergies Allergy (Unverified 08/19/18 13:54) Home Medications: Albuterol Sulfate [Proair Hfa] 2 puff IH Q6HP PRN 08/19/18 Duloxetine HCl 60 mg PO BID 08/19/18 Gabapentin 600 mg PO TID 08/19/18 Methadone HCl [Methadone HCl*] 60 mg PO DAILY 08/19/18 Multivitamin [Multiple Vitamins] 1 tab PO DAILY 08/19/18 Naproxen [Naprosyn] 1 tab PO BID 08/19/18 Mgjcxgoj-Thrsmybelmiudch-Oxpuhabjbcilvd 5 ml PO Q4HR 08/19/18 Pantoprazole Sodium 40 mg PO DAILY 08/19/18 lamoTRIgine [Lamictal*] 25 mg PO BID 08/19/18 levETIRAcetam [Keppra*] 500 mg PO BID 08/19/18 - Past Medical/Surgical History Has patient received pneumonia vaccine in the past: No Diabetic: No -: Anxiety -: Depression -: Fibromyalgia -: HTN -: Tubal Pregancy -: Heroin Addiction -: Ectopic Removal - Family History Father History Unknown: Yes -: Diabetes, Other (see notes) Notes: Parkinson's, Mother History Unknown: Yes -: Heart disease, Diabetes, Stroke Notes: Still living Sister History Unknown: Yes -: Cancer Notes: Both sisters have had cancer - Social History Smoking Status: Current every day smoker Alcohol use: Yes CD- Drugs: Yes Caffeine use: No Place of Residence: Home Review of Systems 10-point ROS is otherwise unremarkable Physical Examination - Vital Signs Temperature: 98.2 F Blood Pressure: 106/57 Pulse: 76 Respirations: 26 Pulse Ox (%): 96 - Physical Exam General: Alert, In no apparent distress, Oriented x3, Other (Little anxious) HEENT: Atraumatic, PERRLA, Mucous membr. moist/pink, EOMI, Sclerae nonicteric Neck: Supple, 2+ carotid pulse no bruit, No LAD, Without JVD or thyroid abnormality Respiratory: Clear to auscultation bilaterally, Normal air movement Cardiovascular: Regular rate/rhythm, Normal S1 S2 Gastrointestinal: Normal bowel sounds, No tenderness Musculoskeletal: No tenderness Integumentary: No rashes Neurological: Normal gait, Normal speech, Normal strength at 5/5 x4 extr, Normal tone, Normal affect - Studies Laboratory Data (last 24 hrs) 08/19/18 11:40: APTT Cancelled 08/19/18 11:40: PT 12.9 H, INR 1.09, APTT 29.9 08/19/18 11:40: WBC 11.3 H, Hgb 15.0, Hct 43.5, Plt Count 287 08/19/18 11:40: Sodium 138, Potassium 3.0 L, BUN 6 L, Creatinine 0.58, Glucose 98, Magnesium 2.0, Total Bilirubin 0.5, AST 19, ALT 22, Alkaline Phosphatase 69 , Lipase 174 Assessment and Plan - Problems (Diagnosis) (1) Chest pain, rule out acute myocardial infarction Current Visit: Yes Status: Acute (2) Depression with suicidal ideation Current Visit: Yes Status: Acute (3) History of depression Current Visit: Yes Status: Acute (4) Heroin addiction Current Visit: Yes Status: Acute (5) Alcohol abuse Current Visit: Yes Status: Acute (6) Current tobacco use Current Visit: Yes Status: Chronic (7) Hypertension Current Visit: Yes Status: Chronic Qualifiers: Hypertension type: essential hypertension Qualified Code(s): I10 - Essential (primary) hypertension - Plan This is a 47-year-old female with: Chest pain, rule out myocardial infarction. Risk factor: Family history of diabetes, hypertension, heroin use, smoking, alcohol abuse Tele monitoring. Chest guidelines: Low-dose metoprolol, lisinopril, aspirin, Plavix and nitro p.r.n.. Will try to avoid morphine at this time. Cardiology consulted Active suicidal ideation Admit patient to ICU, with 1 on 1 sitter. Suicidal precautions Restart home medication for depression. Once medically stable, will have psych eval for possible further inpatient care as patient has no support system here since she just moved about a week ago from [place]. Social work consult placed History of depression Patient has been off depression medications for the past 2 months Restart home medication at this time. Will get psych eval for possible further inpatient care versus outpatient psych care. Essential hypertension Patient not on any prior blood pressure medications. Will start patient on low-dose metoprolol and lisinopril. Will monitor blood pressure, adjust medications as needed. Heroin addiction. Patient with a history of heroin addiction, states that she was suppose could methadone clinic but has not gone. States she has not done any heroin for 1 month, urine drug screen negative. Will continue to monitor. May need resources prior to discharge. Alcohol abuse Counseled on alcohol cessation. Monitor for withdrawal symptoms. Ativan p.r.n. 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 Nicotine patch ordered per patient's wishes. ? Seizure history Patient on home medications Lamictal and Keppra. Patient unsure of any seizure history? Will hold medications at this time and no further information is obtained. DVT prophylaxis: Lovenox GI prophylaxis: Not needed Diet: Heart healthy Disposition: Admit to ICU with 1 on 1 monitoring. Cardiology evaluation pending, psych evaluation pending. - Advance Directives Does patient have a Living Will: No Does patient have a Durable POA for Healthcare: No
[2018-08-19] MEDS ORDERED: NITROGLYCERIN 0.4 MG/TAB SL PRN (18:32)
[2018-08-19] MEDS ORDERED: lamoTRIgine 25 MG TAB PO SCH (21:00)
[2018-08-19] MEDS: levETIRAcetam 500 MG TAB PO SCH (21:29)
[2018-08-19] MEDS: DULOXETINE 30 MG CAP PO SCH (21:29)
[2018-08-19] MEDS: LORazepam 2 MG/ML VIAL IV PRN (21:30)
[2018-08-20] MEDS: NA CHLORIDE 0.9% 1,000 ML IV SCH ×3 (00:30→17:35)
[2018-08-20] MEDS: chlordiazePOXIDE HCl 25 MG CAP PO SCH ×5 (01:53→23:49)
[2018-08-20] MEDS: LORazepam 2 MG/ML VIAL IV PRN ×5 (04:29→23:49)
[2018-08-20 05:08] LABS: Absolute Lymphocytes (CBC) 3.4 K/uL (0.7-4.9); Absolute Monocytes 0.7 K/uL (0.1-1.3); Basophils % 0.4 % (0-1.3); Eosinophils % 0.8 % (0-4.4); Hematocrit 41.6 % (36.0-45.0); Lymphocytes % 33.3 % (15.3-44.8); MPV 9.8 fL (7.6-11.3); Monocytes % 6.8 % (3.3-12.3)
[2018-08-20 05:22] LABS: ALT/SGPT 18 U/L (12-78); AST/SGOT 14 U/L (15-37); Albumin 3.1 g/dL (3.4-5.0); Alkaline Phosphatase 59 U/L (45-117); BUN Blood Urea Nitrogen 7 mg/dL (7-18); Bicarbonate 26 mmol/L (21-32); Bilirubin Total 0.7 mg/dL (0.2-1.0); Glucose Level 89 mg/dL (74-106); Potassium 3.1 mmol/L (3.5-5.1); Protein, Total 6.1 g/dL (6.4-8.2); Sodium Level 143 mmol/L (136-145)
[2018-08-20] MEDS ORDERED: METOPROLOL TAR 25 MG TAB PO SCH (06:00)
[2018-08-20] MEDS ORDERED: POTASSIUM CL SA 10 MEQ TAB PO ONE ×2 (06:20→17:00)
[2018-08-20] MEDS: ONDANSETRON 4 MG/2 ML VIAL IV PRN (07:31)
[2018-08-20] MEDS: levETIRAcetam 500 MG TAB PO SCH ×2 (08:52→20:04)
[2018-08-20] MEDS: DULOXETINE 30 MG CAP PO SCH ×2 (08:52→20:04)
[2018-08-20] MEDS: ASPIRIN EC 81 MG TAB PO SCH (08:52)
[2018-08-20] MEDS: PANTOPRAZOLE 40MG TABLET PO SCH (08:52)
[2018-08-20] MEDS: NICOTINE 21 MG/PAT TD SCH (09:00)
[2018-08-20] MEDS ORDERED: INFLUENZA VACCINE (for 3y+) 0.5 ML DOSE IMVAC ONE (09:00)
[2018-08-20] MEDS ORDERED: LISINOPRIL 5 MG TAB PO SCH (09:00)
[2018-08-20] MEDS ORDERED: REGADENOSON 0.4 MG/5 ML SYR IV ONE (09:33)
[2018-08-20] MEDS: LISINOPRIL 10 MG TAB PO SCH (09:47)
[2018-08-20] MEDS: lamoTRIgine 100 MG TAB PO SCH ×2 (10:40→20:04)
--- NOTE | 2018-08-20 11:03 | ECHO ---
HEIGHT: 5 ft 8 in WEIGHT: 151 lb 8 oz DATE OF STUDY: 08/20/[address]: Jeramy Valverde MD 2-DIMENSIONAL: YES M.MODE: YES DOPPLER: YES COLOR FLOW: YES TDS: NO PORTABLE: YES DEFINITY: NO BUBBLE STUDY: NO DIAGNOSIS: CHEST PAIN CARDIAC HISTORY: CATHERIZATION: NO SURGERY: NO PROSTHETIC VALVE: NO PACEMAKER: NO MEASUREMENTS (cm) DIASTOLIC (NORMALS) SYSTOLIC (NORMALS) IVSd 1.0 (0.6-1.2) LA Diam 3.2 (1.9-4.0) LVEF 66% LVIDd 4.4 (3.5-5.7) LVIDs 2.8 (2.0-3.5) %FS 36% LVPWd 1.1 (0.6-1.2) Ao Diam 2.6 (2.0-3.7) 2 DIMENSIONAL ASSESSMENT: RIGHT ATRIUM: NORMAL LEFT ATRIUM: NORMAL RIGHT VENTRICLE: NORMAL LEFT VENTRICLE: NORMAL TRICUSPID VALVE: NORMAL MITRAL VALVE: NORMAL PULMONIC VALVE: NORMAL AORTIC VALVE: NORMAL PERICARDIAL EFFUSION: NONE AORTIC ROOT: NORMAL LEFT VENTRICULAR WALL MOTION: NORMAL. DOPPLER/COLOR FLOW: MILD MITRAL AND TRICUSPID REGURGITATION. NORMAL RIGHT VENTRICULAR SYSTOLIC PRESSURE. COMMENTS: NORMAL 2D ECHO. MILD MITRAL AND TRICUSPID REGURGITATION. TECHNOLOGIST: KAMRAN MARINELLI
--- NOTE | 2018-08-20 13:08 | RAD REPORT ---
EXAM DESCRIPTION: NM - Rest Stress Cardiac Imaging - 08/20/2018 12:58 pm CLINICAL HISTORY: CP Chest pain. COMPARISON: No comparisons TECHNIQUE: The patient was administered approximately 10mCi of Tc 99m Sestamibi prior to resting SPE CT imaging of the heart. The patient was then administered approximately 30 mCi of Tc 99m Sestamibi f ollowing exercise or pharmacologic stress. Multiplanar SPECT images were reviewed. FINDINGS: No stress induced ischemic defect is seen to suggest stress induced ischemia. No fixed def ect is seen to suggest hibernating myocardium or scarred myocardium. The end diastolic volume is 84 ml, the end systolic volume is 31 ml, and the ejection fraction is 63 %. IMPRESSION: No stress induced ischemia.
--- NOTE | 2018-08-20 13:22 | CON ---
CARDIOLOGY CONSULT Chief Complaint: Chest pain. History Of Present Illness: Mrs. Parker has been having chest pain for a month. It is fairly const ant, located on the left side, not related to exertion or meals or deep breath or body position. She is a patient who has a substance abuse problem and was referred to a Methadone Clinic, but they refu sed to take her because her QT interval was long. She has no history of myocardial infarction, strok e, or diabetes. She has substance abuse problems and a seizure disorder. Outpatient Medications: Albuterol, nystatin, diphenhydramine, duloxetine, naproxen, gabapentin, Lami ctal, Keppra, methadone, multivitamins, and Protonix. Allergies: SHE HAS NO ALLERGIES. Social History: She uses tobacco more than a pack a day. Alcohol use, moderate. No recreational dr ugs in the last month. Physical Examination: Vital Signs: 5 feet 8 inches, 151 pounds. HEENT: Normal. Lungs: Clear. Heart Exam: Within normal limits. No friction rub. Abdomen: Soft. Extremities: Normal distal pulses. Diagnostic Data: Her electrocardiogram is within normal limits. Her troponin levels are all normal. Impression: The patient has no contraindication to being on methadone. Her QT is not prolonged now; it probably can be temporarily prolonged when she is on Lamictal and Keppra, but again it is not a c ontraindication to her using methadone. Her chest pain should be investigated, although she is only 47, she has risk factors. So, we will do a nuclear stress test and echo, and based on what we learn, we may want to recommend a cardiac cath. GARO Voice ID: [id number] Report ID: [id number]
--- NOTE | 2018-08-20 15:32 | TREADPHA ---
DX: CHEST PAIN Date of Study: 08/20/2018 Ht: 5 8 Wt: 151 lb 8 oz Consulting Physician: DR. MARQUIS MEDICATIONS: TYLENOL, ASPIRIN, LIBRIUM, LOVENOX, LAMICTAL, LOPRESSOR, NITROSTAT. HISTORY: 47 YEAR OLD FEMALE WITH COMPLAINTS OF CHEST PAIN. MEDICAL HISTORY OF ANXIETY, DEPRESSION, FIBROMYALGIA, INSOMNIA, SEIZURES. PHYSICIAL EXAMINATION: RESTING B.P.: 190/104 RESTING H.R.: 50 RESTING EKG: NORMAL PROTOCOL: LEXISCAN EXERCISE TIME: 3:30 B.P. AT PEAK STRESS: 141/95 IMPRESSION: LEXISCAN INJECTED, CARDIOLITE INJECTED, PER PROTOCOL. SEE NUCLEAR MEDICINE REPORT. NO SUPRAVENTRICULAR TACHYCARDIA, NO VENTRICULAR TACHYCARDIA. 4/10 CHEST PAIN THROUGHOUT PROCEDURE. NO PREMATURE VENTRICULAR COMPLEXES. NON DIAGNOSTIC ELECTROCARDIOGRAM LEXISCAN STUDY.
--- NOTE | 2018-08-20 17:18 | P.PN ---
Subjective Date of Service: 08/20/18 Primary Care Provider: Does not have one, recently moved from [place] Chief Complaint: Chest pain Subjective: No C/O voiced, Improving Patient seen and examined at bedside. No family at bedside. Chart reviewed and case discussed with nursing staff. Patient having diarrhea, nonbloody. No other concerns or complaints this morning. Still reports feeling anxious Review of Systems 10-point ROS is otherwise unremarkable Physical Examination - Vital Signs Temperature: 98 F Blood Pressure: 161/86 Pulse: 56 Respirations: 17 Pulse Ox (%): 94 - Physical Exam General: Alert, In no apparent distress, Oriented x3 HEENT: Atraumatic, PERRLA, EOMI Neck: Supple, JVD not distended Respiratory: Clear to auscultation bilaterally, Normal air movement Cardiovascular: Regular rate/rhythm, Normal S1 S2 Gastrointestinal: Normal bowel sounds, No tenderness Musculoskeletal: No tenderness Integumentary: No rashes Neurological: Normal speech, Normal tone, Normal affect Lymphatics: No axilla or inguinal lymphadenopathy Assessment And Plan - Current Problems (Diagnosis) (1) Chest pain, rule out acute myocardial infarction Current Visit: Yes Status: Acute (2) Depression with suicidal ideation Current Visit: Yes Status: Acute (3) History of depression Current Visit: Yes Status: Acute (4) Heroin addiction Current Visit: Yes Status: Acute (5) Alcohol abuse Current Visit: Yes Status: Acute (6) Current tobacco use Current Visit: Yes Status: Chronic (7) Hypertension Current Visit: Yes Status: Chronic Qualifiers: Hypertension type: essential hypertension Qualified Code(s): I10 - Essential (primary) hypertension - Plan This is a 47-year-old female with: Chest pain, rule out myocardial infarction. Risk factor: Family history of diabetes, hypertension, heroin use, smoking, alcohol abuse Tele monitoring. Chest guidelines: Low-dose metoprolol, lisinopril, aspirin, Plavix and nitro p.r.n.. Will try to avoid morphine at this time. Cardiology consulted. Recommendations appreciated. She is cleared from cardiology point of view for further psychiatric workup/ evaluation Active suicidal ideation Admit patient to ICU, with 1 on 1 sitter. Suicidal precautions Continued home medication for depression. Once medically stable, will have psych eval for possible further inpatient care as patient has no support system here since she just moved about a week ago from [place]. Social work consult placed History of depression Patient has been off depression medications for the past 2 months Restart home medication at this time. Will get psych eval for possible further inpatient care versus outpatient psych care. Essential hypertension Patient not on any prior blood pressure medications. Will start patient on low-dose metoprolol and lisinopril. Will monitor blood pressure, adjust medications as needed. Heroin addiction. Patient with a history of heroin addiction, states that she was suppose could methadone clinic but has not gone. States she has not done any heroin for 1 month, urine drug screen negative. Will continue to monitor. May need resources prior to discharge. Alcohol abuse Counseled on alcohol cessation. Monitor for withdrawal symptoms. Ativan p.r.n. 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 Nicotine patch ordered per patient's wishes. ? Seizure history Patient on home medications Lamictal and Keppra. Patient unsure of any seizure history? Will hold medications at this time and no further information is obtained. DVT prophylaxis: Lovenox GI prophylaxis: Not needed Diet: Heart healthy Disposition: Admit to ICU with 1 on 1 monitoring. Pending C. diff testing. Will get an MMHR evaluation likely tomorrow.
[2018-08-20] MEDS: ENOXAPARIN 40 MG/0.4 ML SQ SCH (17:35)
[2018-08-20] MEDS: METOPROLOL TAR 25 MG TAB PO SCH (20:05)
[2018-08-20] MEDS: TRAMADOL HCL 50 MG TAB PO PRN (20:11)
[2018-08-21] MEDS ORDERED: POTASSIUM 25 MEQ EFFERV TAB PO ONE (01:04)
[2018-08-21] MEDS ORDERED: POTASSIUM CL SA 10 MEQ TAB PO ONE (03:15)
[2018-08-21] MEDS: NA CHLORIDE 0.9% 1,000 ML IV SCH ×2 (03:58→15:54)
[2018-08-21] MEDS: LORazepam 2 MG/ML VIAL IV PRN ×3 (03:58→13:59)
[2018-08-21] MEDS: chlordiazePOXIDE HCl 25 MG CAP PO SCH ×2 (05:21→12:19)
[2018-08-21] MEDS: TRAMADOL HCL 50 MG TAB PO PRN (05:30)
[2018-08-21 05:31] LABS: Absolute Lymphocytes (CBC) 3.4 K/uL (0.7-4.9); Absolute Monocytes 0.6 K/uL (0.1-1.3); Absolute Neutrophil 4.9 K/uL (1.8-8.0); Basophils % 0.9 % (0-1.3); Eosinophils % 1.2 % (0-4.4); Hematocrit 43.3 % (36.0-45.0); Lymphocytes % 36.8 % (15.3-44.8); MPV 9.7 fL (7.6-11.3); Monocytes % 7.1 % (3.3-12.3); RBC Red Blood Cell Count 4.94 M/uL (3.86-4.86)
[2018-08-21 05:49] LABS: ALT/SGPT 18 U/L (12-78); AST/SGOT 18 U/L (15-37); Albumin 3.5 g/dL (3.4-5.0); Alkaline Phosphatase 66 U/L (45-117); BUN Blood Urea Nitrogen 6 mg/dL (7-18); Bicarbonate 25 mmol/L (21-32); Bilirubin Total 0.6 mg/dL (0.2-1.0); Glucose Level 95 mg/dL (74-106); Protein, Total 6.9 g/dL (6.4-8.2); Sodium Level 140 mmol/L (136-145)
[2018-08-21] MEDS: METOPROLOL TAR 25 MG TAB PO SCH (08:26)
[2018-08-21] MEDS: LISINOPRIL 10 MG TAB PO SCH (08:27)
[2018-08-21] MEDS: lamoTRIgine 100 MG TAB PO SCH (08:27)
[2018-08-21] MEDS: levETIRAcetam 500 MG TAB PO SCH (08:27)
[2018-08-21] MEDS: PANTOPRAZOLE 40MG TABLET PO SCH (08:28)
[2018-08-21] MEDS: DULOXETINE 30 MG CAP PO SCH (08:28)
[2018-08-21] MEDS: ASPIRIN EC 81 MG TAB PO SCH (08:29)
[2018-08-21] MEDS ORDERED: INFLUENZA VACCINE (for 3y+) 0.5 ML DOSE IMVAC ONE (13:00)
[2018-08-21] MEDS: ENOXAPARIN 40 MG/0.4 ML SQ SCH (16:27)
--- NOTE | 2018-08-21 18:29 | P.DS ---
Admission Date: 08/19/18 Discharge Date: 08/21/18 Primary Care Provider: Does not have one, recently moved from [place] Disposition: ROUTINE DISCHARGE Discharge Condition: GOOD Reason for Admission: Chest pain Consultations: Cardiology - Problems (1) Chest pain, rule out acute myocardial infarction Status: Acute (2) Depression with suicidal ideation Status: Acute (3) History of depression Status: Acute (4) Heroin addiction Status: Acute (5) Alcohol abuse Status: Acute (6) Current tobacco use Status: Chronic (7) Hypertension Status: Chronic Qualifiers: Hypertension type: essential hypertension Qualified Code(s): I10 - Essential (primary) hypertension Brief History of Present Illness: This is a 47-year-old female with history of heroin addiction/usage, alcohol abuse, depression, questionable seizure admitted for chest pain. The patient was in the ER at the day prior to admission, sent home with ER. Now returns with worsening chest pain. Per patient, just inserted just 3 weeks ago in the sternal/lower left side area of the chest, impinging/shooting type of pain along with some heaviness. States the pain radiates down her left arm, up to her jaw and neck of the left side. It has been progressively worsening for the past 2-3 weeks. She states that is associated with palpitations, vomiting, chills and clamminess. Denies any fevers, abdominal symptoms, diarrhea, constipation or symptoms. Per patient, she does have a history of depression and she has not been taking any of her medications past meds because she could not afford them. She states that she is becoming more more depressed, has suicidal thoughts. Last time she had any suicidal ideations was the morning of admission. She stated that she would hang herself, because she was tired of living the way she has been, trying to cough up alcohol, unable to afford medications etc. Of note, patient also has a history of addiction to heroin. Patient states that she has not used any heroin since 1 month. She was supposed to be going to a methadone clinic, though has not been doing that because she cannot afford it?. She has recently moved from [place] here 1 week ago and therefore has no support system here or any primary care physician. In the ER, patient's blood pressure was 166/96, heart rate of 63, EKG with nonspecific changes, BNP slightly elevated and labs fairly unremarkable. At the time of my exam, she was not in any acute distress, though did seem a little anxious. She was alert oriented x3. Hospital Course: Patient was admitted to the ICU for 1 on 1 sitter. She did well overall. She was cleared from cardiology point of view. She did have some diarrhea, C. diff was negative. She was then cleared medically for MMHR. Throughout the stay, patient did mention different stories to from people. She did state that she has been off of her medications for a couple months as she could not afford them. But she does fine when she is on her medications. She also mentioned to the nurse that she did not take her medications as they were not the right dosage that she wanted. Anyways it seems that this patient does not have resources here she recently moved from [place] and I believe she will need outpatient psychiatry setup. After MMHR evaluation, it was deemed that patient will benefit from the greatest from outpatient psychiatric evaluation. She was set up with an appointment with [facility] on Saturday, patient is willing to make that appointment and for further to get this evaluated. Prescription for a month's supply for Lamictal, Keppra, and duloxetine sent to patient's pharmacy. She will need dosage/further medication changes in management from her psychiatry. She remains stable throughout the stay. Stated that she did not have any more suicidal ideations after be started her back on her "right medications dosages" Vital Signs/Physical Exam: Temp Pulse Resp BP Pulse Ox 97.4 F 58 16 155/93 H 96 08/21/18 16:00 08/21/18 16:00 08/21/18 16:00 08/21/18 16:00 08/21/18 15:00 General: Alert, In no apparent distress HEENT: Atraumatic, PERRLA, EOMI Neck: Supple, JVD not distended Respiratory: Clear to auscultation bilaterally, Normal air movement Cardiovascular: Regular rate/rhythm, Normal S1 S2 Gastrointestinal: Normal bowel sounds, No tenderness Musculoskeletal: No tenderness Integumentary: No rashes Neurological: Normal speech, Normal tone, Normal affect Lymphatics: No axilla or inguinal lymphadenopathy Laboratory Data at Discharge: WBC 9.1 K/uL (4.3-10.9) 08/21/18 05:15 Hgb 14.9 g/dL (12.0-15.0) 08/21/18 05:15 Hct 43.3 % (36.0-45.0) 08/21/18 05:15 Plt Count 248 K/uL (152-406) 08/21/18 05:15 PT 12.9 SECONDS (9.5-12.5) H 08/19/18 11:40 INR 1.09 08/19/18 11:40 APTT 29.9 SECONDS (24.3-36.9) 08/19/18 11:40 Sodium 140 mmol/L (136-145) 08/21/18 05:15 Potassium 4.0 mmol/L (3.5-5.1) 08/21/18 05:15 BUN 6 mg/dL (7-18) L 08/21/18 05:15 Creatinine 0.57 mg/dL (0.55-1.3) 08/21/18 05:15 Glucose 95 mg/dL (74-106) 08/21/18 05:15 Magnesium 2.0 mg/dL (1.8-2.4) 08/19/18 11:40 Total Bilirubin 0.6 mg/dL (0.2-1.0) 08/21/18 05:15 AST 18 U/L (15-37) 08/21/18 05:15 ALT 18 U/L (12-78) 08/21/18 05:15 Alkaline Phosphatase 66 U/L (45-117) 08/21/18 05:15 Lipase 174 U/L (73-393) 08/19/18 11:40 Home Medications: Duloxetine HCl 60 mg PO BID #60 capsule. 08/21/18 Gabapentin 600 mg PO TID #45 tablet 08/21/18 Lisinopril [Prinivil*] 10 mg PO DAILY #30 tab 08/21/18 Metoprolol Tartrate [Lopressor*] 12.5 mg PO BID #60 tab 08/21/18 Pantoprazole Sodium 40 mg PO DAILY #30 tablet. 08/21/18 lamoTRIgine [Lamictal*] 25 mg PO BID #60 tab 08/21/18 levETIRAcetam [Keppra*] 500 mg PO BID #60 tab 08/21/18 New Medications: Duloxetine HCl 60 mg PO BID #60 capsule. Gabapentin 600 mg PO TID #45 tablet lamoTRIgine [Lamictal*] 25 mg PO BID #60 tab levETIRAcetam [Keppra*] 500 mg PO BID #60 tab Lisinopril [Prinivil*] 10 mg PO DAILY #30 tab Metoprolol Tartrate [Lopressor*] 12.5 mg PO BID #60 tab Pantoprazole Sodium 40 mg PO DAILY #30 tablet. Patient Discharge Instructions: Please follow up with your primary care physician in 1 week. Please follow up with Psychiatry in 1-2 weeks for refills on your medications. Diet: Regular Activity: Ad liliana Physician Review: Patient Assessed, Agree with Above Assessment and Plan Time spent managing pt's care (in minutes): 55
== END 2018-08-21 16:30 | disposition home or self-care (01) | DRG 313 ==
LOC: ER 10:47 → ERHOLD 12:28 → 3RD-ICU 14:00
PROVIDERS: ADMIT Family Medicine; ATTEND Family Medicine
DX: R07.9 Chest pain, unspecified (principal); R45.851 Suicidal ideations; F11.20 Opioid dependence, uncomplicated; F41.8 Other specified anxiety disorders; R19.7 Diarrhea, unspecified; M79.7 Fibromyalgia; I10 Essential (primary) hypertension; F17.210 Nicotine dependence, cigarettes, uncomplicated
CPT/HCPCS: 36415; 78452; 80048; 80053; 80076; 80307; 80320; 80329; 81003; 81025; 83690; 83735; 83880; 84132; 84484; 85025; 85610; 85730; 87493; 93005; 93017; 93306; 96374; 96375; 99285; A9500; G0008; J1650; J2405; J2785; J3411; J7030; Q2035

== ENCOUNTER 2018-12-25 20:56 | Emergency (ER) | payer SELFPAY ==
--- OUTSIDE RECORDS SUMMARY | 2018-12-25 20:58 | XMS REPORT ---
:1970 [facility] Address [address] [place] [address] [address] [place] [address] Care Team Providers Name Role Phone Unavailable Unavailable Unavailable Payers Payer Name Policy Type Policy Number Effective Date Expiration Date Problems This patient has no known problems. Allergies, Adverse Reactions, Alerts Allergy Allergy Status Severity Reaction(s) Onset Inactive Treating Comments Name Type Date Date Clinician No Known DA Active U 2018-08 Allergies -12 00:00:0 0 No Known DA Active U 2018-08 Allergies -10 00:00:0 0 Medications This patient has no known medications.
[2018-12-25 21:40] LABS: Urine Blood NEGATIVE (NEG); Urine Glucose NEGATIVE (NEG); Urine Protein 1+ (NEG); Urine Specific Gravity 1.025 (1.005-1.030)
[2018-12-25 21:41] LABS: Barbiturates NEGATIVE (NEGATIVE); Benzodiazepines NEGATIVE (NEGATIVE); Cocaine NEGATIVE (NEGATIVE); METHAMPHETAM NEGATIVE (NEGATIVE); Methadone NEGATIVE (NEGATIVE); Opiates NEGATIVE (NEGATIVE); Phencyclidine POSITIVE (NEGATIVE); THC Cannibis POSITIVE (NEGATIVE)
[2018-12-25 21:48] LABS: Absolute Lymphocytes (CBC) 5.1 K/uL (0.7-4.9); Absolute Monocytes 0.9 K/uL (0.1-1.3); Absolute Neutrophil 7.9 K/uL (1.8-8.0); Basophils % 0.8 % (0-1.3); Eosinophils % 0.5 % (0-4.4); Hematocrit 44.5 % (36.0-45.0); Lymphocytes % 36.1 % (15.3-44.8); MPV 8.5 fL (7.6-11.3); Monocytes % 6.5 % (3.3-12.3); RBC Red Blood Cell Count 5.09 M/uL (3.86-4.86)
[2018-12-25 22:11] LABS: ALT/SGPT 35 U/L (12-78); AST/SGOT 23 U/L (15-37); Albumin 3.7 g/dL (3.4-5.0); Alkaline Phosphatase 64 U/L (45-117); BUN Blood Urea Nitrogen 7 mg/dL (7-18); Bicarbonate 24 mmol/L (21-32); Bilirubin Direct 0.2 mg/dL (0-0.2); Bilirubin Total 0.6 mg/dL (0.2-1.0); Glucose Level 89 mg/dL (74-106); Potassium 3.3 mmol/L (3.5-5.1); Protein, Total 7.5 g/dL (6.4-8.2); Sodium Level 139 mmol/L (136-145)
[2018-12-25] MEDS ORDERED: LORazepam 2 MG/ML VIAL ONE (22:50)
[2018-12-25] MEDS ORDERED: ONDANSETRON 4 MG (ODT) TAB ONE (22:50)
[2018-12-25] MEDS ORDERED: POTASSIUM CL SA 10 MEQ TAB PO ONE (23:19)
[2018-12-26] MEDS ORDERED: LORAZEPAM 1 MG TABLET ONE ×4 (00:22→18:59)
--- NOTE | 2018-12-26 02:32 | EDPHYS ---
Physician Documentation [facility] Name: Petra Parker Age: 48 yrs Sex: Female : 1970 Arrival Date: 12/25/2018 Time: 20:58 Bed 5 Private MD: ED Physician Ronald Polk HPI: 12/25 22:07 This 48 yrs old Female presents to ER via Wheelchair with complaints of jr8 Suicidal Ideations . 22:07 The patient presents to the emergency department with anxiety, depression, suicide jr8 ideation, and the patient has a plan, to hang oneself. Onset: The symptoms/episode began/occurred gradually, 2 week(s) ago, and became worse and became persistent. Past psychiatric history: Prior diagnosis: bipolar disorder, depression. Associated signs and symptoms: The patient has no apparent associated signs or symptoms. Severity of symptoms: At their worst the symptoms were moderate in the emergency department the symptoms are unchanged. The patient has experienced similar episodes in the past, a few times. The patient has not recently seen a physician. Stated that she has been off of her psychiatric medicine for some time. Has been battling with anxiety, depression, and suicidal ideations for some time but was in verbal argument today that intensified her depression. Stated that she wants to kill herself. Stated that she wants to hang herself with using the shower spout and putting a rope around it to hang herself. Voluntarily wants help and knows she needs to be admitted to psych facility . 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 - Social history:: Smoking status: Patient uses tobacco products, smokes one pack cigarettes per day. - Ebola Screening: : No symptoms or risks identified at this time. ROS: 22:07 Eyes: Negative for injury, pain, redness, and discharge, ENT: Negative for injury, jr8 pain, and discharge, Neck: Negative for injury, pain, and swelling, Cardiovascular: Negative for chest pain, palpitations, and edema, Respiratory: Negative for shortness of breath, cough, wheezing, and pleuritic chest pain, Abdomen/GI: Negative for abdominal pain, nausea, vomiting, diarrhea, and constipation, Back: Negative for injury and pain, MS/Extremity: Negative for injury and deformity, Skin: Negative for injury, rash, and discoloration, Neuro: Negative for headache, weakness, numbness, tingling, and seizure. 22:07 Psych: Positive for anxiety, depression, suicidal ideation. Exam: 22:07 Eyes: Pupils equal round and reactive to light, extra-ocular motions intact. Lids and jr8 lashes normal. Conjunctiva and sclera are non-icteric and not injected. Cornea within normal limits. Periorbital areas with no swelling, redness, or edema. ENT: Nares patent. No nasal discharge, no septal abnormalities noted. Tympanic membranes are normal and external auditory canals are clear. Oropharynx with no redness, swelling, or masses, exudates, or evidence of obstruction, uvula midline. Mucous membranes moist. Neck: Trachea midline, no thyromegaly or masses palpated, and no cervical lymphadenopathy. Supple, full range of motion without nuchal rigidity, or vertebral point tenderness. No Meningismus. Cardiovascular: Regular rate and rhythm with a normal S1 and S2. No gallops, murmurs, or rubs. Normal PMI, no JVD. No pulse deficits. Respiratory: Lungs have equal breath sounds bilaterally, clear to auscultation and percussion. No rales, rhonchi or wheezes noted. No increased work of breathing, no retractions or nasal flaring. Abdomen/GI: Soft, non-tender, with normal bowel sounds. No distension or tympany. No guarding or rebound. No evidence of tenderness throughout. Back: No spinal tenderness. No costovertebral tenderness. Full range of motion. Skin: Warm, dry with normal turgor. Normal color with no rashes, no lesions, and no evidence of cellulitis. MS/ Extremity: Pulses equal, no cyanosis. Neurovascular intact. Full, normal range of motion. Neuro: Awake and alert, GCS 15, oriented to person, place, time, and situation. Cranial nerves II-XII grossly intact. Motor strength 5/5 in all extremities. Sensory grossly intact. Cerebellar exam normal. Normal gait. 22:07 Psych: Behavior/mood is cooperative, suicidal, depressed, Affect is calm, Oriented to person, place, time, Patient having thoughts of suicide. Plan for suicide is see HPI Judgement / Insight is normal. Memory is normal. Delusions/hallucinations are not present. Vital Signs: 21:16 BP 143 / 98; Pulse 75; Resp 18; Temp 98.3(O); Pulse Ox 98% on R/A; Weight 68.04 kg; lp1 Height 5 ft. 8 in. (172.72 cm); Pain 8/10; 22:00 BP 134 / 73; Pulse 72; Resp 18; Pulse Ox 98% on R/A; lp1 23:00 BP 132 / 84; Pulse 70; Resp 18; Pulse Ox 99% on R/A; lp1 05/ 05:36 BP 114 / 75; Pulse 66; Resp 16; Pulse Ox 99% on R/A; ar5 08:25 BP 122 / 80; Pulse 71; Resp 18; Pulse Ox 99% on R/A; jb1 11:40 BP 116 / 51; Pulse 63; Resp 18; Temp 97.4; Pulse Ox 97% ; es1 12:30 BP 110 / 76; Pulse 66; Resp 18; Temp 98.4; Pulse Ox 96% ; es1 14:20 BP 112 / 68; Pulse 70; Resp 16; Temp 98.8; Pulse Ox 99% on R/A; Pain 2/10; ch 16:30 BP 120 / 78; Pulse 74; Resp 18; Temp 98.5; Pulse Ox 99% on R/A; Pain 0/10; ch 18:52 BP 129 / 94; Pulse 68; Resp 18; Temp 98.02; Pulse Ox 99% on R/A; Pain 7/10; ch 21:21 BP 120 / 95; Pulse 78; Resp 16; Pulse Ox 98% ; Pain 0/10; em3 05/11 02:00 BP 121 / 74; Pulse 57; Resp 16; Pulse Ox 95% ; Pain 0/10; em3 06:06 BP 114 / 87; Pulse 80; Resp 16; Temp 98.1; Pulse Ox 98% ; Pain 0/10; cr4 07:01 BP 136 / 87; Pulse 75; Resp 17; Temp 97.7; Pulse Ox 97% ; Pain 0/10; em5 08:07 Pain 6/10; em5 08:08 Pain 6/10; em5 11:11 BP 136 / 90; Pulse 78; Resp 18; Temp 97.8(O); Pulse Ox 99% on R/A; Pain 4/10; em5 05 21:16 Body Mass Index 22.81 (68.04 kg, 172.72 cm) lp1 MDM: 12/25 21:11 Patient medically screened. liborio 12/26 17:24 ED course: The patient is resting comfortably in the ED. Though just medicated about an kdr hour ago, she feels that she is still anxious. She is still SI. Will add additional medication and continue to seek placement. 12/27 07:25 ED course: Pt calm, resting, reports generalized body aches, requests pain meds, normal rn vitals, awaiting transfer. . 07:38 ED course: Had long discussion with patient, she seems improved, sober, and denies rn suicidal ideation. Reports has appt with Konrad Wilkinson in 3 days, and would like to go home. She denied suicidal and homicidal intents multiple times during my evaluation/interview and is consistent. Will get konrad wilkinson back out to reeval and attempt to dc home with refill of her meds, since that is what she came in for.. 11:16 Differential diagnosis: anxiety, chest wall pain, gastroesophageal reflux disease rn (GERD), pleurisy. Data reviewed: vital signs, nurses notes, lab test result(s), EKG. Counseling: I had a detailed discussion with the patient and/or guardian regarding: the historical points, exam findings, and any diagnostic results supporting the discharge/admit diagnosis, lab results, the need for outpatient follow up, to return to the emergency department if symptoms worsen or persist or if there are any questions or concerns that arise at home. ED course: Evaluated again by konrad wilkinson, now is sober and denies suicidal ideation to all that ask, deemed safe for discharge by Konrad Wilkinson, will dc home now with return precautions.. 12/25 21:20 Order name: Acetaminophen; Complete Time: 22:12 lp1 12/25 21:20 Order name: Basic Metabolic Panel; Complete Time: 22:12 1 12/25 21:20 Order name: CBC with Diff; Complete Time: 22:11 lp1 12/25 21:20 Order name: ETOH Level; Complete Time: 22:29 [facility] 12/25 21:20 Order name: Hepatic Function; Complete Time: 22:12 [facility] 12/25 21:20 Order name: PT-INR; Complete Time: 22:47 [facility] 12/25 21:20 Order name: Ptt, Activated; Complete Time: 22:47 [facility] 12/25 21:20 Order name: Salicylate; Complete Time: 22:29 [facility] 12/25 21:20 Order name: Urine Drug Screen; Complete Time: 21:45 [facility] 12/25 21:28 Order name: Urine Dipstick--Ancillary (enter results) [facility] 12/25 21:28 Order name: Urine --Ancillary (enter results) [facility] 12/25 21:20 Order name: EKG; Complete Time: 21:22 [facility] 12/25 21:20 Order name: EKG - Nurse/Tech; Complete Time: 21:20 [facility] 12/25 21:20 Order name: Labs collected and sent; Complete Time: 21:47 [facility] 12/25 21:20 Order name: Urine Dipstick-Ancillary (obtain specimen); Complete Time: 21:26 [facility] 12/26 06:32 Order name: Diet Regular; Complete Time: 06:32 [facility] 12/26 12:52 Order name: Diet Regular; Complete Time: 12:53 ch Administered Medications: 12/25 22:44 Not Given (changed route): Ativan 1 mg IVP once tl2 22:44 Drug: Zofran 4 mg Route: PO; 2 12/26 00:00 Follow up: Response: Nausea is decreased [facility] 12/25 22:45 Drug: Ativan 1 mg Route: IM; Site: right deltoid; tl2 12/26 00:00 Follow up: Response: No change in condition 1 12/25 23:11 Drug: Potassium Chloride 40 mEq Route: PO; lp1 12/26 00:00 Follow up: Response: No adverse reaction lp1 00:10 Drug: Ativan 2 mg Route: PO; tl2 01:30 Follow up: Response: Marked relief of symptoms lp1 07:23 Drug: Ativan 1 mg Route: PO; 07:48 Follow up: Response: pt vomits. since it is a controlled substance, pt will not be re ch administered. awaiting pt seroquel from pharmacy now. 07:40 Drug: Zofran 4 mg Route: PO; ch 18:34 Follow up: Response: No adverse reaction ch 09:00 Drug: SEROquel 100 mg Route: PO; ch 14:30 Follow up: Response: No adverse reaction iw 09:41 Not Given (wrong order. ): Cymbalta 30 mg PO once ch 10:00 Drug: Imodium A-D 2 mg Route: PO; iw 14:29 Follow up: Response: No adverse reaction iw 11:00 Drug: Cymbalta 60 mg Route: PO; iw 15:17 Follow up: Response: No adverse reaction ch 14:31 Drug: Ativan 1 mg Route: PO; iw 15:16 Follow up: Response: No adverse reaction ch 14:31 Drug: Imodium A-D 2 mg Route: PO; iw 15:16 Follow up: Response: No adverse reaction; Marked relief of symptoms ch 16:50 Drug: Nicoderm CQ 21 mg/24 hr 21 mg Route: Transdermal; Site: affected area; iw 18:44 Drug: Ativan 1 mg Route: PO; iw 18:55 Follow up: Response: No adverse reaction ch 18:55 Drug: Tylenol 1000 mg Route: PO; ch 18:55 Follow up: Response: No adverse reaction ch 21:17 Drug: Cymbalta 60 mg {Note: night-time dose.} Route: PO; tl2 23:00 Follow up: Response: No adverse reaction tl2 21:18 Drug: SEROquel 100 mg {Note: night-time dose.} Route: PO; tl2 23:00 Follow up: Response: No adverse reaction tl2 05 03:42 Drug: Ativan 1 mg Route: PO; tl2 04:34 Follow up: Response: No adverse reaction; Anxiety decreased tl2 07:41 Drug: Motrin 800 mg Route: PO; em5 08:07 Follow up: Pain 6/10 Adult em5 08:08 Follow up: Pain 6/10 Adult em5 08:09 Follow up: Response: Pain is decreased em5 10:05 Drug: Ativan 1 mg Route: PO; em5 10:33 Follow up: Response: No adverse reaction; Anxiety decreased em5 Disposition: 11:50 Co-signature as Attending Physician, Ronald Polk MD., rn Disposition: 12/27/18 11:21 Discharged to Home. Impression: Chest pain, unspecified, Anxiety disorder, unspecified. - Condition is Stable. - Discharge Instructions: Nonspecific Chest Pain, Generalized Anxiety Disorder. - Prescriptions for Cymbalta 60 mg Oral capsule,delayed release(DR/EC) - take 1 capsule by ORAL route 2 times per day for 15 days; 30 capsule. Seroquel 100 mg Oral tablet - take 1 tablet by ORAL route 2 times per day for 15 days; 30 tablet. gabapentin 600 mg Oral tablet - take 1 tablet by ORAL route 3 times per day for 15 days; 45 tablet. Amitriptyline 100 mg Oral Tablet - take 1 tablet by ORAL route At bedtime for 15 days; 15 tablet. - Medication Reconciliation Form, Thank You Letter, Antibiotic Education, Prescription Opioid Use form. - Follow up: Private Physician; When: As needed; Reason: Recheck today's complaints, Re-evaluation by your physician. - Problem is new. - Symptoms have improved. Signatures: Dispatcher [employer] EDMS Maribel Kendall, RN Juliette Rico ch, RN RN aj Anderson, Corey, MD MD cha Rittger, Kevin, MD MD kdr Williams, Irene, RN RN iw Nieto, Roman, MD MD rn Pena, Laura, RN RN lp1 Chris Vo PA PA jr8 Pebbles Millard RN RN tl2 Yumi Crooks em5 Corrections: (The following items were deleted from the chart) 11:18 12/26 02:32 12/26/2018 02:32 Transfer ordered to Psych Facility. Diagnosis is Suicidal rn ideations; Major depressive disorder, recurrent; Bipolar disorder. Reason for transfer: Higher level of care. Accepting physician is to psych. Condition is Stable. Problem is new. Symptoms have improved. [facility] 12/27 11:36 11:21 12/27/2018 11:21 Discharged to Home. Impression: Chest pain, unspecified; Anxiety aj disorder, unspecified. Condition is Stable. Forms are Medication Reconciliation Form, Thank You Letter, Antibiotic Education, Prescription Opioid Use. Follow up: Private Physician; When: As needed; Reason: Recheck today's complaints, Re-evaluation by your physician. Problem is new. Symptoms have improved. rn
--- NOTE | 2018-12-26 02:32 | ER ---
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 family/friend visitors at this time Sitter present at this time. 20:15 Safety Checks: Personal items have been removed. The door is open or patient has been em3 placed in a hallway bed/chair. There are no family/friend visitors at this time Sitter present at this time. 20:30 Safety Checks: Personal items have been removed. The door is open or patient has been em3 placed in a hallway bed/chair. There are no family/friend visitors at this time Sitter present at this time. 20:45 Safety Checks: Personal items have been removed. The door is open or patient has been em3 placed in a hallway bed/chair. There are no family/friend visitors at this time Sitter present at this time. 21:00 Safety Checks: Personal items have been removed. The door is open or patient has been em3 placed in a hallway bed/chair. There are no family/friend visitors at this time Sitter present at this time. 21:15 Safety Checks: Personal items have been removed. The door is open or patient has been em3 placed in a hallway bed/chair. A family member and/or friend is present and encouraged to stay. [facility] employee at bedside Sitter present at this time. 21:25 Assisted to bathroom. em3 21:30 Safety Checks: Personal items have been removed. The door is open or patient has been em3 placed in a hallway bed/chair. There are no family/friend visitors at this time Sitter present at this time. 21:45 Safety Checks: Personal items have been removed. The door is open or patient has been em3 placed in a hallway bed/chair. There are no family/friend visitors at this time Sitter present at this time. 22:00 Safety Checks: Personal items have been removed. The door is open or patient has been em3 placed in a hallway bed/chair. There are no family/friend visitors at this time Sitter present at this time. 22:10 Safety Checks: Personal items have been removed. The door is open or patient has been em3 placed in a hallway bed/chair. There are no family/friend visitors at this time Sitter present at this time. 22:15 Safety Checks: Personal items have been removed. The door is open or patient has been em3 placed in a hallway bed/chair. There are no family/friend visitors at this time Sitter present at this time. 22:30 Safety Checks: Personal items have been removed. The door is open or patient has been em3 placed in a hallway bed/chair. There are no family/friend visitors at this time Sitter present at this time. 22:45 Safety Checks: Personal items have been removed. The door is open or patient has been em3 placed in a hallway bed/chair. There are no family/friend visitors at this time Sitter present at this time. 22:46 Assisted to bathroom. em3 23:00 Safety Checks: Personal items have been removed. The door is open or patient has been em3 placed in a hallway bed/chair. There are no family/friend visitors at this time Sitter present at this time. 23:15 Safety Checks: Personal items have been removed. The door is open or patient has been em3 placed in a hallway bed/chair. There are no family/friend visitors at this time Sitter present at this time. 23:30 Safety Checks: Personal items have been removed. The door is open or patient has been em3 placed in a hallway bed/chair. There are no family/friend visitors at this time Sitter present at this time. 23:45 Safety Checks: Personal items have been removed. The door is open or patient has been em3 placed in a hallway bed/chair. There are no family/friend visitors at this time Sitter present at this time. 12/27 00:00 Safety Checks: Personal items have been removed. The door is open or patient has been em3 placed in a hallway bed/chair. There are no family/friend visitors at this time Sitter present at this time. 00:15 Safety Checks: Personal items have been removed. The door is open or patient has been em3 placed in a hallway bed/chair. There are no family/friend visitors at this time Sitter present at this time. 00:30 Safety Checks: Personal items have been removed. The door is open or patient has been em3 placed in a hallway bed/chair. There are no family/friend visitors at this time Sitter present at this time. 00:45 Safety Checks: Personal items have been removed. The door is open or patient has been em3 placed in a hallway bed/chair. There are no family/friend visitors at this time Sitter present at this time. 01:00 Safety Checks: Personal items have been removed. The door is open or patient has been em3 placed in a hallway bed/chair. There are no family/friend visitors at this time Sitter present at this time. 01:15 Safety Checks: Personal items have been removed. The door is open or patient has been em3 placed in a hallway bed/chair. There are no family/friend visitors at this time Sitter present at this time. 01:30 Safety Checks: Personal items have been removed. The door is open or patient has been em3 placed in a hallway bed/chair. There are no family/friend visitors at this time Sitter present at this time. 01:45 Safety Checks: Personal items have been removed. The door is open or patient has been em3 placed in a hallway bed/chair. There are no family/friend visitors at this time Sitter present at this time. 01:45 Safety Checks: Personal items have been removed. The door is open or patient has been cr4 placed in a hallway bed/chair. There are no family/friend visitors at this time. 02:00 Safety Checks: Personal items have been removed. The door is open or patient has been em3 placed in a hallway bed/chair. There are no family/friend visitors at this time Sitter present at this time. 02:15 Safety Checks: Personal items have been removed. The door is open or patient has been em3 placed in a hallway bed/chair. There are no family/friend visitors at this time Sitter present at this time. 02:30 Safety Checks: Personal items have been removed. The door is open or patient has been em3 placed in a hallway bed/chair. There are no family/friend visitors at this time Sitter present at this time. 02:45 Safety Checks: Personal items have been removed. The door is open or patient has been em3 placed in a hallway bed/chair. There are no family/friend visitors at this time Sitter present at this time. 03:00 Safety Checks: Personal items have been removed. The door is open or patient has been em3 placed in a hallway bed/chair. There are no family/friend visitors at this time Sitter present at this time. 03:15 Safety Checks: Personal items have been removed. The door is open or patient has been cr4 placed in a hallway bed/chair. There are no family/friend visitors at this time Sitter present at this time. 03:30 Safety Checks: Personal items have been removed. The door is open or patient has been cr4 placed in a hallway bed/chair. There are no family/friend visitors at this time Sitter present at this time. 03:45 Safety Checks: Personal items have been removed. The door is open or patient has been cr4 placed in a hallway bed/chair. There are no family/friend visitors at this time Sitter present at this time. 04:00 Safety Checks: Personal items have been removed. The door is open or patient has been cr4 placed in a hallway bed/chair. There are no family/friend visitors at this time Sitter present at this time. 04:15 Safety Checks: Personal items have been removed. The door is open or patient has been cr4 placed in a hallway bed/chair. There are no family/friend visitors at this time Sitter present at this time. 04:25 PO fluids given. crackers given. cr4 04:30 Safety Checks: Personal items have been removed. The door is open or patient has been cr4 placed in a hallway bed/chair. There are no family/friend visitors at this time Sitter present at this time. 04:45 Safety Checks: Personal items have been removed. The door is open or patient has been cr4 placed in a hallway bed/chair. There are no family/friend visitors at this time Sitter present at this time. 05:00 Safety Checks: Personal items have been removed. The door is open or patient has been cr4 placed in a hallway bed/chair. There are no family/friend visitors at this time Sitter present at this time. 05:15 Safety Checks: Personal items have been removed. The door is open or patient has been cr4 placed in a hallway bed/chair. There are no family/friend visitors at this time Sitter present at this time. 05:30 Safety Checks: Personal items have been removed. The door is open or patient has been cr4 placed in a hallway bed/chair. There are no family/friend visitors at this time Sitter present at this time. 05:45 Safety Checks: Personal items have been removed. The door is open or patient has been cr4 placed in a hallway bed/chair. There are no family/friend visitors at this time Sitter present at this time. 06:00 Safety Checks: Personal items have been removed. The door is open or patient has been cr4 placed in a hallway bed/chair. There are no family/friend visitors at this time Sitter present at this time. 06:15 Safety Checks: Personal items have been removed. The door is open or patient has been cr4 placed in a hallway bed/chair. There are no family/friend visitors at this time Sitter present at this time. 06:30 Safety Checks: Personal items have been removed. The door is open or patient has been cr4 placed in a hallway bed/chair. There are no family/friend visitors at this time Sitter present at this time. 06:45 Safety Checks: Personal items have been removed. The door is open or patient has been cr4 placed in a hallway bed/chair. There are no family/friend visitors at this time Sitter present at this time. 07:00 Safety Checks: Personal items have been removed. The door is open or patient has been em5 placed in a hallway bed/chair. There are no family/friend visitors at this time Sitter present at this time. 07:15 Safety Checks: Personal items have been removed. The door is open or patient has been em5 placed in a hallway bed/chair. There are no family/friend visitors at this time Sitter present at this time. 07:29 Cedric Farley RN is Primary Nurse. 07:30 Safety Checks: Personal items have been removed. The door is open or patient has been em5 placed in a hallway bed/chair. There are no family/friend visitors at this time Sitter present at this time. 07:[address] [facility] line to page the screener communications associate to come rescreen the eb patient as requested by ED doc/ Sophie from the center will send out the information to the screener. 07:43 Attending Physician role handed off by Maximus Villalobos MD rn 07:43 Ronald Polk MD is Attending Physician. rn 07:45 No apparent distress. Resting quietly. Safety Checks: Personal items have been removed. em5 The door is open or patient has been placed in a hallway bed/chair. There are no family/friend visitors at this time Sitter present at this time. 07:57 Noise minimized. Lights dimmed. em5 08:00 Safety Checks: Personal items have been removed. The door is open or patient has been em5 placed in a hallway bed/chair. There are no family/friend visitors at this time Sitter present at this time. 08:15 No apparent distress. watching tv. Safety Checks: Personal items have been removed. The em5 door is open or patient has been placed in a hallway bed/chair. There are no family/friend visitors at this time Sitter present at this time. 08:30 Safety Checks: Personal items have been removed. The door is open or patient has been em5 placed in a hallway bed/chair. There are no family/friend visitors at this time Sitter present at this time. 08:45 Safety Checks: Personal items have been removed. The door is open or patient has been em5 placed in a hallway bed/chair. There are no family/friend visitors at this time Sitter present at this time. 09:00 No apparent distress. Patient eating breakfast. em5 09:00 Safety Checks: Personal items have been removed. The door is open or patient has been em5 placed in a hallway bed/chair. There are no family/friend visitors at this time Sitter present at this time. 09:15 Safety Checks: Personal items have been removed. The door is open or patient has been em5 placed in a hallway bed/chair. There are no family/friend visitors at this time Sitter present at this time. 09:30 Safety Checks: Personal items have been removed. The door is open or patient has been em5 placed in a hallway bed/chair. There are no family/friend visitors at this time Sitter present at this time. 09:45 Safety Checks: Personal items have been removed. The door is open or patient has been em5 placed in a hallway bed/chair. There are no family/friend visitors at this time Sitter present at this time. 10:00 Safety Checks: Personal items have been removed. The door is open or patient has been em5 placed in a hallway bed/chair. There are no family/friend visitors at this time Sitter present at this time. 10:15 Safety Checks: Personal items have been removed. The door is open or patient has been em5 placed in a hallway bed/chair. Sitter present at this time. 10:25 No apparent distress. Appears to be sleeping. em5 10:30 Safety Checks: Personal items have been removed. The door is open or patient has been em5 placed in a hallway bed/chair. There are no family/friend visitors at this time Sitter present at this time. 10:45 No apparent distress. Safety Checks: Personal items have been removed. The door is open em5 or patient has been placed in a hallway bed/chair. A family member and/or friend is present and encouraged to stay. Sitter present at this time. 10:48 [facility] here to rescreen the patient. eb 11:00 No apparent distress. Safety Checks: Personal items have been removed. The door is open em5 or patient has been placed in a hallway bed/chair. A family member and/or friend is present and encouraged to stay. Sitter present at this time. 11:01 Juliette Dunn, LESTER is Primary Nurse. 11:15 Safety Checks: Personal items have been removed. The door is open or patient has been em5 placed in a hallway bed/chair. There are no family/friend visitors at this time Sitter present at this time. 11:30 Safety Checks: Personal items have been removed. The door is open or patient has been em5 placed in a hallway bed/chair. There are no family/friend visitors at this time Sitter present at this time. Administered Medications: 12/25 22:44 Not Given (changed route): Ativan 1 mg IVP once tl2 22:44 Drug: Zofran 4 mg Route: PO; tl2 12/26 00:00 Follow up: Response: Nausea is decreased lp1 12/25 22:45 Drug: Ativan 1 mg Route: IM; Site: right deltoid; tl2 12/26 00:00 Follow up: Response: No change in condition lp1 12/25 23:11 Drug: Potassium Chloride 40 mEq Route: PO; lp1 12/26 00:00 Follow up: Response: No adverse reaction lp1 00:10 Drug: Ativan 2 mg Route: PO; tl2 01:30 Follow up: Response: Marked relief of symptoms lp1 07:23 Drug: Ativan 1 mg Route: PO; ch 07:48 Follow up: Response: pt vomits. since it is a controlled substance, pt will not be re ch administered. awaiting pt seroquel from pharmacy now. 07:40 Drug: Zofran 4 mg Route: PO; ch 18:34 Follow up: Response: No adverse reaction ch 09:00 Drug: SEROquel 100 mg Route: PO; ch 14:30 Follow up: Response: No adverse reaction iw 09:41 Not Given (wrong order. ): Cymbalta 30 mg PO once ch 10:00 Drug: Imodium A-D 2 mg Route: PO; iw 14:29 Follow up: Response: No adverse reaction iw 11:00 Drug: Cymbalta 60 mg Route: PO; iw 15:17 Follow up: Response: No adverse reaction ch 14:31 Drug: Ativan 1 mg Route: PO; iw 15:16 Follow up: Response: No adverse reaction ch 14:31 Drug: Imodium A-D 2 mg Route: PO; iw 15:16 Follow up: Response: No adverse reaction; Marked relief of symptoms ch 16:50 Drug: Nicoderm CQ 21 mg/24 hr 21 mg Route: Transdermal; Site: affected area; iw 18:44 Drug: Ativan 1 mg Route: PO; iw 18:55 Follow up: Response: No adverse reaction ch 18:55 Drug: Tylenol 1000 mg Route: PO; ch 18:55 Follow up: Response: No adverse reaction ch 21:17 Drug: Cymbalta 60 mg {Note: night-time dose.} Route: PO; tl2 23:00 Follow up: Response: No adverse reaction tl2 21:18 Drug: SEROquel 100 mg {Note: night-time dose.} Route: PO; tl2 23:00 Follow up: Response: No adverse reaction tl2 12/27 03:42 Drug: Ativan 1 mg Route: PO; tl2 04:34 Follow up: Response: No adverse reaction; Anxiety decreased tl2 07:41 Drug: Motrin 800 mg Route: PO; em5 08:07 Follow up: Pain 6/10 Adult em5 08:08 Follow up: Pain 6/10 Adult em5 08:09 Follow up: Response: Pain is decreased em5 10:05 Drug: Ativan 1 mg Route: PO; em5 10:33 Follow up: Response: No adverse reaction; Anxiety decreased em5 Outcome: 12/26 02:32 ER care complete, transfer ordered by MD. capone 12/27 11:21 Discharge ordered by rn 11:35 Discharged to home ambulatory. aj 11:35 Condition: good 11:35 Discharge instructions given to patient, Instructed on discharge instructions, follow up and referral plans. medication usage, Demonstrated understanding of instructions, follow-up care, medications, Prescriptions given X 4. 11:36 Patient left the ED. aj Signatures: Rajan Canales jb1 Maribel Kendall, RN Juliette Rico ch, RN RN aj Anderson, Corey, MD MD cha Salyer, Sallie Young RN Evelyne Navarro RN RN cr4 Nieto, Roman, MD MD rn Pena, Laura, RN LESTER lp1 Chris Vo PA PA jr8 Cedric Farley RN Pebbles Jorgensen RN RN tl2 Roseanne Blunt RN RN em3 Maxine Lenz Erin es1 Kimmy Kee ar5 Yumi Crooks em5 Corrections: (The following items were deleted from the chart) 05 05:38 05:36 BP 114 / 65; Pulse 66bpm; Resp 16bpm; Pulse Ox 99% RA; ar5 ar5 12:44 12:14 Safety checks: Items removed: yes. Door open/sign placed on door: yes. es1 Family/friend present: no. Sitter present: Yes. es1 16:31 16:14 Safety checks: Items removed: yes. Door open/sign placed on door: yes. es1 Family/friend present: no. Sitter present: Yes. es1 16:41 09:41 Reassessment: Patient appears in no apparent distress at this time. pt is asking ch for repeat doesages of ativan, educated on once every 6-8 hrs prn. pt home medications ordered. pt states she takes 900mg or ch 17:20 16:59 Safety checks: Items removed: yes. Door open/sign placed on door: yes. es1 Family/friend present: no. Sitter present: Yes. es1 18:46 18:44 Safety checks: Items removed: yes. Door open/sign placed on door: yes. es1 Family/friend present: no. Sitter present: Yes. es1 12/27 05:45 04:49 Safety Checks: Personal items have been removed. The door is open or patient has cr4 been placed in a hallway bed/chair. There are no family/friend visitors at this time cr4 06:09 04:00 Safety Checks: Personal items have been removed. The door is open or patient has cr4 been placed in a hallway bed/chair. A family member and/or friend is present and encouraged to stay. There are no family/friend visitors at this time Sitter present at this time. cr4 06:10 04:15 Safety Checks: Personal items have been removed. The door is open or patient has cr4 been placed in a hallway bed/chair. A family member and/or friend is present and encouraged to stay. There are no family/friend visitors at this time Sitter present at this time. cr4 06:11 04:45 Safety Checks: Personal items have been removed. The door is open or patient has cr4 been placed in a hallway bed/chair. A family member and/or friend is present and encouraged to stay. There are no family/friend visitors at this time Sitter present at this time. cr4 06:11 05:00 Safety Checks: Personal items have been removed. The door is open or patient has cr4 been placed in a hallway bed/chair. A family member and/or friend is present and encouraged to stay. There are no family/friend visitors at this time Sitter present at this time. cr4 06:12 05:15 Safety Checks: Personal items have been removed. The door is open or patient has cr4 been placed in a hallway bed/chair. A family member and/or friend is present and encouraged to stay. There are no family/friend visitors at this time Sitter present at this time. cr4 06:13 05:30 Safety Checks: Personal items have been removed. The door is open or patient has cr4 been placed in a hallway bed/chair. A family member and/or friend is present and encouraged to stay. There are no family/friend visitors at this time Sitter present at this time. cr4 06:13 05:45 Safety Checks: Personal items have been removed. The door is open or patient has cr4 been placed in a hallway bed/chair. A family member and/or friend is present and encouraged to stay. There are no family/friend visitors at this time Sitter present at this time. cr4 07:52 07:01 BP 136 / 87; Pulse 75bpm; Resp 17bpm; Pulse Ox 97%; Pain 0/10; em5 em5 08:29 08:09 Response: Pain is decreased em5 em5 09:31 09:28 Safety Checks: Personal items have been removed. The door is open or patient has em5 been placed in a hallway bed/chair. There are no family/friend visitors at this time Sitter present at this time. em5 10:32 09:45 Reassessment: I follwed up with Dr. Polk about the medicine. em5 em5
--- NOTE | 2018-12-26 07:12 | EKG ---
Test Date: 2018-12-25 Test Time: 21:05:31 Disability Insurance Claim Examiner: EVY MEASUREMENT RESULTS: Intervals: Rate: 71 DC: 120 QRSD: 80 QT: 406 QTc: 441 [place]: P: 7 DC: 120 QRS: 55 T: 58 INTERPRETIVE STATEMENTS: Normal sinus rhythm Normal ECG Compared to ECG 08/19/2018 11:02:47 No significant changes Electronically Signed On 12-26-18 07:11:19 CDT by Hiren Mueller
[2018-12-26] MEDS ORDERED: ONDANSETRON 4 MG (ODT) TAB ONE (08:00)
[2018-12-26] MEDS ORDERED: QUETIAPINE 100MG TAB PO ONE ×2 (08:00→18:00)
[2018-12-26] MEDS ORDERED: DULOXETINE 30 MG CAP PO ONE ×2 (10:15→18:00)
[2018-12-26] MEDS ORDERED: LOPERAMIDE HCL 2 MG CAPSULE ONE ×2 (11:37→14:45)
[2018-12-26] MEDS ORDERED: NICOTINE 21 MG/PAT TD ONE (17:03)
[2018-12-26] MEDS ORDERED: ACETAMINOPHEN 500 MG TAB ONE (18:59)
[2018-12-27] MEDS ORDERED: LORAZEPAM 1 MG TABLET ONE ×2 (03:54→10:17)
[2018-12-27] MEDS ORDERED: IBUPROFEN 400 MG TAB ONE (07:47)
== END 2018-12-27 11:36 | disposition home or self-care (01) ==
LOC: ER 20:56
DX: F41.9 Anxiety disorder, unspecified (principal); R07.9 Chest pain, unspecified; F32.9 Major depressive disorder, single episode, unspecified; F43.10 Post-traumatic stress disorder, unspecified; F31.9 Bipolar disorder, unspecified; F17.210 Nicotine dependence, cigarettes, uncomplicated
CPT/HCPCS: 36415; 80048; 80076; 80307; 80320; 80329; 81003; 81025; 85025; 85610; 85730; 93005; 96372; 99285